=== PATIENT | female | born 1970 | race Hispanic/Latino ===

== ENCOUNTER 2019-08-10 04:54 | Inpatient (IN) | payer OTHER ==
[2019-08-10] MEDS ORDERED: ONDANSETRON 4 MG/2 ML INJ IV ONE (05:37)
[2019-08-10] MEDS ORDERED: PANTOPRAZOLE 40 MG INJ IV ONE (05:37)
[2019-08-10] MEDS ORDERED: MORPHINE 2 MG/1 ML INJ IV ONE ×2 (05:38→08:02)
[2019-08-10] MEDS ORDERED: SODIUM CHLORIDE 0.9% 1000 ML 1,000 ML IV ONE ×2 (05:38→06:31)
[2019-08-10 06:05] LABS: INR 1.12 (0.87-1.13)
[2019-08-10 06:06] LABS: Partial Thromboplastin Time 27.5 Sec. (24.2-36.6)
[2019-08-10 06:11] LABS: Albumin 3.8 g/dL (3.9-5); Calcium 9.6 mg/dL (8.4-10.2)
[2019-08-10 06:16] LABS: Hematocrit 38.4 % (30.3-42.9); Hemoglobin 11.8 gm/dl (10.1-14.3); Mean Corpuscular HGB Conc 31 % (30-34); Platelet Count 526 K/mm3 (140-440); Red Blood Count 3.44 M/mm3 (3.65-5.03)
[2019-08-10 06:18] LABS: Mean Corpuscular Volume 111 fl (79-97); Red Cell Distribution Width 31.2 % (13.2-15.2)
[2019-08-10] MEDS ORDERED: POTASSIUM CHLORIDE ER 20 MEQ TAB PO ONE (06:30)
--- NOTE | 2019-08-10 06:36 | Emergency Department Report ---
ED N/V/D HPI - General Chief complaint: GI Bleed Stated complaint: VOMITING BLOOD Time Seen by Provider: 08/10/19 06:13 Source: patient, EMS Mode of arrival: Wheelchair Limitations: No Limitations - History of Present Illness Initial comments: 49-year-old female, history of erosive esophagitis, duodenal ulcer, anemia, intussusception, presents to ED with vomiting and abdominal pain. Patient reports symptoms have been ongoing x1 month. States she has not had a bowel movement in 1 month. Patient reports initially emesis consisted of stomach contents, states then became a greenish, bilious color, and this morning became brownish in color. Patient reports epigastric pain radiating to the back. Patient reports she has been to this hospital multiple times in the past and has been seen by GI, but has never followed up in the office as an outpatient. MD complaint: nausea, vomiting, abdominal pain -: month(s) (1) Description of Vomiting: food contents, bilious, coffee grounds Associated Abdominal Pain: Yes Location: epigastric Severity: moderate Quality: cramping Consistency: constant Improves with: none Worsens with: eating Associated Symptoms: nausea/vomiting, weakness - Related Data Allergies Allergy/AdvReac Type Severity Reaction Status Date / Time Penicillins Allergy Unknown Verified 08/10/19 05:10 ED Review of Systems ROS: Stated complaint: VOMITING BLOOD Other details as noted in HPI Comment: All other systems reviewed and negative Constitutional: denies: chills, fever Gastrointestinal: abdominal pain, nausea, vomiting, constipation ED Past Medical Hx - Past Medical History Previous Medical History?: Yes Hx Hypertension: Yes Additional medical history: PUD. GI Bleed. Anemia - Surgical History Past Surgical History?: No - Social History Smoking Status: Never Smoker Substance Use Type: None ED Physical Exam - General Limitations: No Limitations General appearance: other (appears frail) - Head Head exam: Present: atraumatic, normocephalic, other (lice present) - Eye Eye exam: Present: normal appearance, EOMI - ENT ENT exam: Present: mucous membranes dry - Neck Neck exam: Present: normal inspection - Respiratory Respiratory exam: Present: normal lung sounds bilaterally. Absent: respiratory distress - Cardiovascular Cardiovascular Exam: Present: normal rhythm, tachycardia - GI/Abdominal GI/Abdominal exam: Present: soft, tenderness (epigastric), other (pt has coffee ground emesis in emesis bag at bedside). Absent: distended - Extremities Exam Extremities exam: Present: normal inspection - Neurological Exam Neurological exam: Present: alert, oriented X3, CN II-XII intact. Absent: motor sensory deficit - Psychiatric Psychiatric exam: Present: normal affect, normal mood - Skin Skin exam: Present: pallor ED Course Vital Signs 08/10/19 08/10/19 08/10/19 05:06 05:28 05:30 Temperature 97.7 F Pulse Rate 115 H 117 H Respiratory 18 19 Rate Blood Pressure 109/68 130/89 123/84 O2 Sat by Pulse 100 76 L 99 Oximetry 08/10/19 08/10/19 08/10/19 05:46 06:00 06:16 Temperature Pulse Rate 104 H 105 H 110 H Respiratory 20 21 19 Rate Blood Pressure 123/84 139/85 139/85 O2 Sat by Pulse 100 100 100 Oximetry 08/10/19 08/10/19 08/10/19 07:00 08:00 09:00 Temperature Pulse Rate 104 H 101 H 102 H Respiratory 18 16 13 Rate Blood Pressure 133/79 114/60 139/75 O2 Sat by Pulse 92 100 100 Oximetry 08/10/19 10:00 Temperature Pulse Rate 101 H Respiratory 16 Rate Blood Pressure 135/81 O2 Sat by Pulse 100 Oximetry ED Medical Decision Making - Lab Data Result diagrams: 08/10/19 05:17 08/10/19 08:20 - Radiology Data Radiology results: report reviewed, image reviewed - Medical Decision Making - intractable nausea and vomiting x 1 month; CT Abd/Pelvis negative for acute abnormality - acidotic with increased AG; glucose normal; denies aspirin use; states instructed to take iron, but has not been taking it; bicarb drip initiated - hypokalemia w/ K of 2.2; PO replacement given - coffee ground emesis; Hb normal; protonix bolus given, drip initiated - vitals stable, afebrile, initially tachycardic, now improved following 2L bolus NS - pt will be admitted to hospitalist, Dr Witt, for admission - Differential Diagnosis GI bleed, anemia, bowel obstruction Critical Care Time: Yes Critical care time in (mins) excluding proc time.: 35 Critical care attestation.: If time is entered above; I have spent that time in minutes in the direct care of this critically ill patient, excluding procedure time. Critical Care Time: 35 min ED Disposition Clinical Impression: Nausea & vomiting, GI bleed, Hypokalemia, Metabolic acidosis, Head lice Disposition: DC-09 OP ADMIT IP TO THIS HOSP Is pt being admited?: Yes Condition: Stable Time of Disposition: 07:56
[2019-08-10 06:48] LABS: Albumin 3.5 g/dL (3.9-5); Bilirubin,Direct 0.3 mg/dL (0-0.2)
[2019-08-10 06:50] LABS: Anisocytosis 1+; Basophils % (Manual) 0 % (0.0-1.8); Total Cells Counted 100
[2019-08-10 06:51] LABS: Macrocytosis 1+; Platelet Estimate Consistent w Auto
--- NOTE | 2019-08-10 07:45 | Cat Scan Report ---
CT ABDOMEN AND PELVIS WITH CONTRAST HISTORY: MAIN: vomiting x 12 hours Omni 300 COMPARISON: None. TECHNIQUE: Axial CT images were obtained through the abdomen and pelvis after 100 cc of Omnipaque 300 intravenously. Sagittal and coronal reformatted images. All CT scans at this location are performed using CT dose reduction for ALARA by means of automated exposure control. FINDINGS: CT ABDOMEN: Lung Bases: Clear. Liver: Mild hepatic steatosis. Biliary: The gallbladder appears dilated measuring up to 10.8 cm in length and 5.3 cm in diameter. No obvious calcified gallstones or sludge. The common bile duct and intrahepatic bile ducts are unremar kable. Spleen: No significant abnormality. Unenlarged. Pancreas: No significant abnormality. Adrenals: No significant abnormality. Kidneys: No significant abnormality. Lymphatics: No lymphadenopathy. Vasculature: No significant abnormality. Bowel/Peritoneum: No significant abnormality. No free air. No free fluid. Normal appendix. CT PELVIS: : The bladder is moderately distended but no wall thickening or filling defect is detected. The fabián joceline and adnexa are unremarkable. Osseous Structures: Mild thoracolumbar scoliosis and degenerative changes in the lumbar spine. Additional Findings: None IMPRESSION: Dilated gallbladder but no obvious calcified gallstones on CT. Correlate for biliary symptoms. Mild hepatic steatosis. Mild scoliosis with degenerative changes in the lumbar spine. Signer Name: Ian Chen Jr, MD Signed: 08/10/2019 7:41 AM Workstation Name: [id number]
[2019-08-10] MEDS ORDERED: NALOXONE 0.4 MG/1 ML INJ IV PRN (08:14)
[2019-08-10] MEDS ORDERED: ONDANSETRON 4 MG/2 ML INJ IV PRN ×2 (08:14→08:20)
[2019-08-10] MEDS ORDERED: METOCLOPRAMIDE 10 MG/2 ML INJ IV PRN (08:14)
--- NOTE | 2019-08-10 08:19 | History and Physical Report ---
History of Present Illness Date of examination: 08/10/19 Date of admission: 08/10/19 Chief complaint: Persistent nausea with vomiting History of present illness: Patient is a 49-year-old female, history of erosive esophagitis, duodenal ulcer, anemia, intussusception, presents to ED with vomiting and abdominal pain. Initially she described it as food contents and today is bilious with noted coffee-ground emesis. Patient reports symptoms have been ongoing x1 month. States she has not had a bowel movement in 1 month despite being on stool softeners. Patient reports initially emesis consisted of stomach contents, states then became a greenish, bilious color, and this morning became brownish in color. Patient reports epigastric pain radiating to the back. Patient reports she has been to this hospital multiple times in the past and has been seen by GI, but has never followed up in the office as an outpatient. She denies tobacco use, or alcohol and illicit drug use. Past History Past Medical History: GERD, hypertension, other (PUD) Past Surgical History: Other (COLONSCOPY) Social history: no significant social history, full code Family history: no significant family history Medications and Allergies Allergies Allergy/AdvReac Type Severity Reaction Status Date / Time Penicillins Allergy Unknown Verified 08/10/19 05:10 Active Meds: Active Medications Sodium Bicarbonate 50 meq/ (Sodium Chloride) 1,050 mls @ 125 mls/hr IV DI RECT ONE Stop: 08/10/19 17:23 Pantoprazole Sodium 80 mg/ (Sodium Chloride) 100 mls @ 10 mls/hr IV DIRECT ARNOLDO Review of Systems All systems: negative Constitutional: anorexia, weakness, malaise, lethargy, no weight loss, no weight gain, no fever Cardiovascular: palpitations, no chest pain, no orthopnea, no rapid/irregular heart beat, no edema, no syncope Gastrointestinal: abdominal pain, nausea, vomiting, constipation, no diarrhea Neurological: no head injury, no paralysis, no parathesias, no numbness, no seizures, no tic, no change in speech, no confusion Psychiatric: no change in sleep habits, no insomnia, no change in libido, no disorientation Endocrine: no polyuria, no excessive sweating, no weight change, no proptosis, no palpatations, no recent glucocorticoid use Hematologic/Lymphatic: no easy bleeding Exam - Physical Exam Narrative exam: VITAL SIGNS: Reviewed. GENERAL: The patient appears normally developed, frail appearing. Actively vomiting noted earlier. Noted lice. Vital signs as documented. HEAD: No signs of head trauma. EYES: Pupils are equal. Extraocular motions intact. EARS: Hearing grossly intact. MOUTH: Oropharynx is normal. NECK: No adenopathy, no JVD. CHEST: Chest with clear breath sounds bilaterally. No wheezes, rales, or rhonchi. CARDIAC: tachycardia. S1 and S2, without murmurs, gallops, or rubs. VASCULAR: No Edema. Peripheral pulses normal and equal in all extremities. ABDOMEN: Soft, non tender [epigastric tenderness noted in the ED] and non distended. No rebound or guarding, and no masses palpated. Bowel Sounds normal. MUSCULOSKELETAL: Good range of motion of all major joints. Extremities without clubbing, cyanosis or edema. NEUROLOGIC EXAM: Alert and oriented x 3 No focal sensory or strength deficits. Speech normal. Follows commands. PSYCHIATRIC: Mood normal. SKIN: detial exam as documented in skin assessment - Constitutional Vitals: Temp Pulse Resp BP Pulse Ox 97.7 F 110 H 19 139/85 100 08/10/19 05:06 08/10/19 06:16 08/10/19 06:16 08/10/19 06:16 08/10/19 06:16 Results - Labs CBC & Chem 7: 08/10/19 13:08 08/10/19 13:08 Labs: Laboratory Last Values WBC 10.1 K/mm3 (4.5-11.0) 08/10/19 05:17 RBC 3.44 M/mm3 (3.65-5.03) L 08/10/19 05:17 Hgb 11.8 gm/dl (10.1-14.3) 08/10/19 05:17 Hct 38.4 % (30.3-42.9) 08/10/19 05:17 MCV 111 fl (79-97) H 08/10/19 05:17 MCH 34 pg (28-32) H 08/10/19 05:17 MCHC 31 % (30-34) 08/10/19 05:17 RDW 31.2 % (13.2-15.2) H 08/10/19 05:17 Plt Count 526 K/mm3 (140-440) H 08/10/19 05:17 Lymph % (Auto) Manager Inpatient 08/10/19 05:17 [place] % (Auto) Manager Inpatient 08/10/19 05:17 Eos % (Auto) Manager Inpatient 08/10/19 05:17 Baso % (Auto) Manager Inpatient 08/10/19 05:17 Lymph # Manager Inpatient 08/10/19 05:17 [place] # Manager Inpatient 08/10/19 05:17 Eos # Manager Inpatient 08/10/19 05:17 Baso # Manager Inpatient 08/10/19 05:17 Add Manual Diff Complete 08/10/19 05:17 Total Counted 100 08/10/19 05:17 Seg Neutrophils % Manager Inpatient 08/10/19 05:17 Seg Neuts % (Manual) 80.0 % (40.0-70.0) H 08/10/19 05:17 Band Neutrophils % 0 % 08/10/19 05:17 Lymphocytes % (Manual) 12.0 % (13.4-35.0) L 08/10/19 05:17 Reactive Lymphs % (Man) 0 % 08/10/19 05:17 Monocytes % (Manual) 5.0 % (0.0-7.3) 08/10/19 05:17 Eosinophils % (Manual) 3.0 % (0.0-4.3) 08/10/19 05:17 Basophils % (Manual) 0 % (0.0-1.8) 08/10/19 05:17 Metamyelocytes % 0 % 08/10/19 05:17 Myelocytes % 0 % 08/10/19 05:17 Promyelocytes % 0 % 08/10/19 05:17 Blast Cells % 0 % 08/10/19 05:17 Nucleated RBC % Not Reportable 08/10/19 05:17 Seg Neutrophils # Manager Inpatient 08/10/19 05:17 Seg Neutrophils # Man 8.1 K/mm3 (1.8-7.7) H 08/10/19 05:17 Band Neutrophils # 0.0 K/mm3 08/10/19 05:17 Lymphocytes # (Manual) 1.2 K/mm3 (1.2-5.4) 08/10/19 05:17 Abs React Lymphs (Man) 0.0 K/mm3 08/10/19 05:17 Monocytes # (Manual) 0.5 K/mm3 (0.0-0.8) 08/10/19 05:17 Eosinophils # (Manual) 0.3 K/mm3 (0.0-0.4) 08/10/19 05:17 Basophils # (Manual) 0.0 K/mm3 (0.0-0.1) 08/10/19 05:17 Metamyelocytes # 0.0 K/mm3 08/10/19 05:17 Myelocytes # 0.0 K/mm3 08/10/19 05:17 Promyelocytes # 0.0 K/mm3 08/10/19 05:17 Blast Cells # 0.0 K/mm3 08/10/19 05:17 WBC Morphology Not Reportable 08/10/19 05:17 Hypersegmented Neuts Not Reportable 08/10/19 05:17 Hyposegmented Neuts Not Reportable 08/10/19 05:17 Hypogranular Neuts Not Reportable 08/10/19 05:17 Smudge Cells Not Reportable 08/10/19 05:17 Toxic Granulation Not Reportable 08/10/19 05:17 Toxic Vacuolation Not Reportable 08/10/19 05:17 Dohle Bodies Not Reportable 08/10/19 05:17 Pelger-Huet Anomaly Not Reportable 08/10/19 05:17 Jhonny Rods Not Reportable 08/10/19 05:17 Platelet Estimate Consistent w auto 08/10/19 05:17 Clumped Platelets Not Reportable 08/10/19 05:17 Plt Clumps, EDTA Not Reportable 08/10/19 05:17 Large Platelets Not Reportable 08/10/19 05:17 Giant Platelets Not Reportable 08/10/19 05:17 Platelet Satelliting Not Reportable 08/10/19 05:17 Plt Morphology Comment Not Reportable 08/10/19 05:17 RBC Morphology Not Reportable 08/10/19 05:17 Dimorphic RBCs Not Reportable 08/10/19 05:17 Polychromasia Not Reportable 08/10/19 05:17 Hypochromasia Not Reportable 08/10/19 05:17 Poikilocytosis Not Reportable 08/10/19 05:17 Anisocytosis 1+ 08/10/19 05:17 Microcytosis Not Reportable 08/10/19 05:17 Macrocytosis 1+ 08/10/19 05:17 Spherocytes Not Reportable 08/10/19 05:17 Pappenheimer Bodies Not Reportable 08/10/19 05:17 Sickle Cells Not Reportable 08/10/19 05:17 Target Cells Not Reportable 08/10/19 05:17 Tear Drop Cells Not Reportable 08/10/19 05:17 Ovalocytes Not Reportable 08/10/19 05:17 Helmet Cells Not Reportable 08/10/19 05:17 Roche-Macy Bodies Not Reportable 08/10/19 05:17 Carson Rings Not Reportable 08/10/19 05:17 Denice Cells Not Reportable 08/10/19 05:17 Bite Cells Not Reportable 08/10/19 05:17 Crenated Cell Not Reportable 08/10/19 05:17 Elliptocytes Not Reportable 08/10/19 05:17 Acanthocytes (Spur) Not Reportable 08/10/19 05:17 Rouleaux Not Reportable 08/10/19 05:17 Hemoglobin C Crystals Not Reportable 08/10/19 05:17 Schistocytes Not Reportable 08/10/19 05:17 Malaria parasites Not Reportable 08/10/19 05:17 Jace Bodies Not Reportable 08/10/19 05:17 Hem Pathologist Commnt No 08/10/19 05:17 PT 14.2 Sec. (12.2-14.9) 08/10/19 05:34 INR 1.12 (0.87-1.13) 08/10/19 05:34 APTT 27.5 Sec. (24.2-36.6) 08/10/19 05:34 Sodium 133 mmol/L (137-145) L 08/10/19 05:34 Potassium 2.2 mmol/L (3.6-5.0) L* 08/10/19 05:34 Chloride 86.9 mmol/L (98-107) L 08/10/19 05:34 Carbon Dioxide 8 mmol/L (22-30) L* 08/10/19 05:34 Anion Gap 40 mmol/L 08/10/19 05:34 BUN 7 mg/dL (7-17) 08/10/19 05:34 Creatinine 1.1 mg/dL (0.7-1.2) 08/10/19 05:34 Estimated GFR 52 ml/min 08/10/19 05:34 BUN/Creatinine Ratio 6 % 05/11/20 05:34 Glucose 90 mg/dL (65-100) 08/10/19 05:34 Calcium 9.6 mg/dL (8.4-10.2) 08/10/19 05:34 Magnesium 2.60 mg/dL (1.7-2.3) H 08/10/19 05:34 Total Bilirubin 0.60 mg/dL (0.1-1.2) 08/10/19 05:34 Total Bilirubin 0.60 mg/dL (0.1-1.2) 08/10/19 05:34 Direct Bilirubin 0.3 mg/dL (0-0.2) H 08/10/19 05:34 Indirect Bilirubin 0.3 mg/dL 08/10/19 05:34 AST 36 units/L (5-40) 08/10/19 05:34 AST 45 units/L (5-40) H 08/10/19 05:34 ALT 24 units/L (7-56) 08/10/19 05:34 ALT 26 units/L (7-56) 08/10/19 05:34 Alkaline Phosphatase 152 units/L (35-129) H 08/10/19 05:34 Alkaline Phosphatase 163 units/L (35-129) H 08/10/19 05:34 Total Protein 7.7 g/dL (6.3-8.2) 08/10/19 05:34 Total Protein 7.7 g/dL (6.3-8.2) 08/10/19 05:34 Albumin 3.5 g/dL (3.9-5) L 08/10/19 05:34 Albumin 3.8 g/dL (3.9-5) L 08/10/19 05:34 Albumin/Globulin Ratio 0.8 % 08/10/19 05:34 Albumin/Globulin Ratio 1.0 % 08/10/19 05:34 Lipase 146 units/L (13-60) H 08/10/19 05:34 Blood Type A POSITIVE 08/10/19 05:11 Antibody Screen Negative 08/10/19 05:11 [place]/IV: IV Catheter Type [Left INT / Saline Lock Antecubital] Assessment and Plan Assessment and plan: Patient is a 49-year-old female, history of erosive esophagitis, duodenal ulcer, anemia, intussusception, presents to ED with vomiting and abdominal pain. Initially she described it as food contents and today is bilious with noted coffee-ground emesis. Patient reports symptoms have been ongoing x1 month. States she has not had a bowel movement in 1 month despite being on stool softeners. Patient reports initially emesis consisted of stomach contents, states then became a greenish, bilious color, and this morning became brownish in color. Patient reports epigastric pain radiating to the back. Patient reports she has been to this hospital multiple times in the past and has been seen by GI, but has never followed up in the office as an outpatient. She denies tobacco use, or alcohol and illicit drug use. Severe metabolic acidosis Severe hypokalemia Persistent intractable nausea and vomiting Coffee-ground emesis evaluate for possible GI bleed Severe protein calorie malnutrition with cachexia BMI of 18 Hypermagnesemia Mildly elevated alk phos Tachycardia Plan Admit to inpatient MedSurg for severe metabolic acidosis, persistent intractable nausea vomiting Zofran every 4 hours as needed. And Reglan if no improvement with Zofran. Patient already received 2 L boluses of fluid on admission will reevaluate fluid status. We will put a nephrology consult Start on Bicarb drip GI evaluation Monitor H&H Repeat labs in a.m. including CMP DVT and GI prophylaxis Advance Directives: Yes Plan of care discussed with patient/family: Yes
[2019-08-10] MEDS ORDERED: SODIUM BICARB 8.4% 50 MEQ/50 ML SYRINGE IV ONE (08:21)
[2019-08-10 08:49] LABS: BUN/Creatinine Ratio 8; Blood Urea Nitrogen 7 mg/dL (7-17); Calcium 8.4 mg/dL (8.4-10.2); Hemolysis Index 7
[2019-08-10] MEDS ORDERED: SODIUM BICARBONATE 50 MEQ in SODIUM CHLORIDE 0.9% 1000 ML 1,000 ML IV ONE (09:00)
[2019-08-10] MEDS ORDERED: POTASSIUM CHLORIDE 10 MEQ 20 MEQ/200 ML BAG IV ONE ×2 (09:59→15:40)
[2019-08-10] MEDS: POTASSIUM CHLORIDE 10 MEQ 10 MEQ/100 ML BAG IV SCH ×4 (10:13→18:29)
[2019-08-10] MEDS ORDERED: PERMETHRIN 5% CREAM 60 GM TP ONE (10:30)
[2019-08-10 13:33] LABS: Hematocrit 29.2 % (30.3-42.9); Hemoglobin 9.3 gm/dl (10.1-14.3)
[2019-08-10 13:53] LABS: BUN/Creatinine Ratio 6; Blood Urea Nitrogen 5 mg/dL (7-17); Calcium 8.1 mg/dL (8.4-10.2); Hemolysis Index 10
[2019-08-10] MEDS ORDERED: MAGNESIUM HYDROXIDE (MOM) ORAL LIQD UDC PO PRN (15:20)
[2019-08-10] MEDS ORDERED: SODIUM CHLORIDE 0.9% 1000 ML 1,000 ML ONE (15:39)
[2019-08-10] MEDS: SODIUM BICARBONATE 150 MEQ in DEXTROSE 5% IN WATER 1,000 ML IV SCH (18:00)
[2019-08-10] MEDS: PANTOPRAZOLE 80 MG in SODIUM CHLORIDE 0.9% 100 ML IV SCH (19:26)
[2019-08-10] MEDS ORDERED: ACETAMINOPHEN 325 MG TAB ONE (19:49)
[2019-08-10] MEDS: ACETAMINOPHEN 325 MG TAB PO PRN (19:50)
[2019-08-11] MEDS: PANTOPRAZOLE 80 MG in SODIUM CHLORIDE 0.9% 100 ML IV SCH (01:24)
[2019-08-11] MEDS: SODIUM BICARBONATE 150 MEQ in DEXTROSE 5% IN WATER 1,000 ML IV SCH (01:25)
[2019-08-11 05:44] LABS: Hematocrit 20.4 % (30.3-42.9); Hemoglobin 7.1 gm/dl (10.1-14.3); Mean Corpuscular HGB Conc 35 % (30-34); Mean Corpuscular Volume 100 fl (79-97); Platelet Count 227 K/mm3 (140-440); Red Blood Count 2.03 M/mm3 (3.65-5.03)
[2019-08-11 06:08] LABS: Alanine Aminotransferase 14 units/L (7-56); Albumin 2.4 g/dL (3.9-5); BUN/Creatinine Ratio 6; Blood Urea Nitrogen 3 mg/dL (7-17); Calcium 7.5 mg/dL (8.4-10.2); Hemolysis Index 1
[2019-08-11 06:36] LABS: Anisocytosis 3+; Basophils % (Manual) 0 % (0.0-1.8); Target Cells Few; Total Cells Counted 100
[2019-08-11 06:37] LABS: Macrocytosis Few; Ovalocytes Few; Schistocytes Few; Tear Drop Cells Few
[2019-08-11 06:38] LABS: Platelet Estimate Consistent w Auto
[2019-08-11] MEDS ORDERED: SODIUM CHLORIDE 0.9% 500 ML 500 ML IV SCH (08:00)
--- NOTE | 2019-08-11 09:04 | Consultation ---
History of Present Illness - Reason for Consult Consult date: 08/11/19 hypokalemia, metabolic acidosis - History of Present Illness Mrs. Metzger is a 49-year-old female who presented to the ED with abdominal pain, constipation (patient stated that she had not had a bowel movement in appx 1 month) and vomiting. She denies hematemesis, states emesis is nonbloody, bilious. Labs at admission notable for Bicarb 8 and K 2.2. Past History Past Medical History: GERD, hypertension, other (PUD) Past Surgical History: Other (COLONSCOPY) Social history: no significant social history, full code Family history: no significant family history Medications and Allergies Allergies Allergy/AdvReac Type Severity Reaction Status Date / Time Penicillins Allergy Unknown Verified 08/10/19 05:10 Home Medications Medication Instructions Recorded Confirmed Last Taken Type No Known Home Medications [No 08/10/19 08/10/19 Unknown History Reported Home Medications] Active Meds: Active Medications Acetaminophen (Tylenol) 650 mg PO Q4H PRN PRN Reason: Pain MILD(1-3)/Fever >100.5/CONH Last Admin: 08/10/19 19:50 Dose: 650 mg Documented by: Bisacodyl (Dulcolax) 10 mg DC QDAY PRN PRN Reason: Constipation unrelieved by MOM Pantoprazole Sodium 80 mg/ (Sodium Chloride) 100 mls @ 10 mls/hr IV DIRECT ARNOLDO Last Admin: 08/11/19 01:24 Dose: 8 mg/hr, 10 mls/hr Documented by: Potassium Chloride (Kcl 10meq/100ml) 10 meq in 100 mls @ 100 mls/hr IV Q1H ARNOLDO Stop: 08/11/19 12:59 Sodium Chloride (Nacl 0.9% 500 Ml) 500 mls @ 0 mls/hr IV ONCE ARNOLDO Stop: 08/11/19 18:00 Magnesium Hydroxide (Milk Of Magnesia) 30 ml PO Q4H PRN PRN Reason: Constipation Metoclopramide HCl (Reglan) 10 mg IV Q6H PRN PRN Reason: Nausea And Vomiting Naloxone HCl (Naloxone) 0.1 mg IV Q2MIN PRN PRN Reason: Res Rate </= 8 or 02 SAT < 92% Ondansetron HCl (Zofran) 4 mg IV Q4H PRN PRN Reason: Nausea And Vomiting Sodium Chloride (Sodium Chloride Flush Syringe 10 Ml) 10 ml IV BID ARNOLDO Last Admin: 08/10/19 23:59 Dose: Not Given Documented by: Sodium Chloride (Sodium Chloride Flush Syringe 10 Ml) 10 ml IV PRN PRN PRN Reason: LINE FLUSH Last Admin: 08/10/19 19:25 Dose: 10 ml Documented by: Review of Systems All systems: negative Exam - Vital Signs Vital signs: Vital Signs Temp Pulse Resp BP Pulse Ox 97.7 F 115 H 18 109/68 100 08/10/19 05:06 08/10/19 05:06 08/10/19 05:06 08/10/19 05:06 08/10/19 05:06 - Physical Exam Narrative exam: Exam deferred as adequate PPE is not available at time of visit. Results - Lab Results 08/11/19 11:46 08/11/19 16:49 Most recent lab results Calcium 7.5 mg/dL (8.4-10.2) L 08/11/19 05:17 Magnesium 2.60 mg/dL (1.7-2.3) H 08/10/19 05:34 Assessment and Plan Impression: * Hypokalemia * Metaolic acidosis - resolved * Nausea/vomiting * Anemia Plan: * Replete K prn - patient is s/p 60meq overnight, 40meq IV has been ordered today * Continue IVF * Transfuse pRBC prn * Will obtain work up for hypokalemia * AM labs ordered
[2019-08-11] MEDS: POTASSIUM CHLORIDE 10 MEQ 10 MEQ/100 ML BAG IV SCH ×4 (09:05→12:44)
--- NOTE | 2019-08-11 09:09 | Progress Note ---
Assessment and Plan Assessment and plan: Patient is a 49-year-old female, history of erosive esophagitis, duodenal ulcer, anemia, intussusception, presents to ED with vomiting and abdominal pain. Initially she described it as food contents and today is bilious with noted coffee-ground emesis. Patient reports symptoms have been ongoing x1 month. States she has not had a bowel movement in 1 month despite being on stool softeners. Patient reports initially emesis consisted of stomach contents, states then became a greenish, bilious color, and this morning became brownish in color. Patient reports epigastric pain radiating to the back. Patient reports she has been to this hospital multiple times in the past and has been seen by GI, but has never followed up in the office as an outpatient. She denies tobacco use, or alcohol and illicit drug use. 08/10: Persistent hypokalemia. Acidosis is corrected. Will start bicarb drip. Will give additional potassium. Question underlining RTA. Discussed with nursing staff nephrology currently evaluating. GI called by nursing staff. We will plan to give a unit of packed red blood cell due to the dramatic drop in hemoglobin and hematocrit. Severe metabolic acidosis Severe hypokalemia Persistent intractable nausea and vomiting Severe Anemia Coffee-ground emesis evaluate for possible GI bleed Severe protein calorie malnutrition with cachexia BMI of 18 Hypermagnesemia Mildly elevated alk phos Tachycardia Plan Continue supportive care as outlined above and below Zofran every 4 hours as needed. And Reglan if no improvement with Zofran. Patient already received 2 L boluses of fluid on admission will reevaluate fluid status. We will put a nephrology consult Permethrin was ordered and patient was treated with same. Discontinue bicarb drip GI evaluation Monitor H&H Repeat labs in a.m. including CMP DVT and GI prophylaxis History Interval history: Patient seen and examined this morning resting comfortably no new complaints. Discussed with nursing staff about low potassium. Hospitalist Physical - Physical exam Narrative exam: VITAL SIGNS: Reviewed. GENERAL: The patient appears normally developed, frail appearing. Vital signs as documented. HEAD: No signs of head trauma. EYES: Pupils are equal. Extraocular motions intact. EARS: Hearing grossly intact. MOUTH: Oropharynx is normal. NECK: No adenopathy, no JVD. CHEST: Chest with clear breath sounds bilaterally. No wheezes, rales, or rhonchi. CARDIAC: tachycardia. S1 and S2, without murmurs, gallops, or rubs. VASCULAR: No Edema. Peripheral pulses normal and equal in all extremities. ABDOMEN: Soft, non tender [epigastric tenderness noted in the ED] and non distended. No rebound or guarding, and no masses palpated. Bowel Sounds normal. MUSCULOSKELETAL: Good range of motion of all major joints. Extremities without clubbing, cyanosis or edema. NEUROLOGIC EXAM: Alert and oriented x 3 No focal sensory or strength deficits. Speech normal. Follows commands. PSYCHIATRIC: Mood normal. SKIN: Multiple punctate skin lesion with dry skin. Detial exam as documented in skin assessment - Constitutional Vitals: Temp Pulse Resp BP Pulse Ox 98.1 F 89 18 94/47 97 08/10/19 23:53 08/11/19 06:11 08/10/19 23:53 08/11/19 06:11 08/11/19 08:16 Results - Labs CBC & Chem 7: 08/11/19 11:46 08/11/19 05:17 Labs: Laboratory Last Values WBC 6.0 K/mm3 (4.5-11.0) 08/11/19 05:17 RBC 2.03 M/mm3 (3.65-5.03) L 08/11/19 05:17 Hgb 7.1 gm/dl (10.1-14.3) L 08/11/19 05:17 Hct 20.4 % (30.3-42.9) L D 08/11/19 05:17 MCV 100 fl (79-97) H 08/11/19 05:17 MCH 35 pg (28-32) H 08/11/19 05:17 MCHC 35 % (30-34) H 08/11/19 05:17 RDW 31.0 % (13.2-15.2) H 08/11/19 05:17 Plt Count 227 K/mm3 (140-440) 08/11/19 05:17 Lymph % (Auto) Adjunct Teacher 08/10/19 05:17 Bracken % (Auto) Adjunct Teacher 08/10/19 05:17 Eos % (Auto) Adjunct Teacher 08/10/19 05:17 Baso % (Auto) Adjunct Teacher 08/10/19 05:17 Lymph # Adjunct Teacher 08/10/19 05:17 Bracken # Adjunct Teacher 08/10/19 05:17 Eos # Adjunct Teacher 08/10/19 05:17 Baso # Adjunct Teacher 08/10/19 05:17 Add Manual Diff Complete 08/11/19 05:17 Total Counted 100 08/11/19 05:17 Seg Neutrophils % Adjunct Teacher 08/10/19 05:17 Seg Neuts % (Manual) 65.0 % (40.0-70.0) 08/11/19 05:17 Band Neutrophils % 0 % 08/11/19 05:17 Lymphocytes % (Manual) 21.0 % (13.4-35.0) 08/11/19 05:17 Reactive Lymphs % (Man) 0 % 08/11/19 05:17 Monocytes % (Manual) 9.0 % (0.0-7.3) H 08/11/19 05:17 Eosinophils % (Manual) 5.0 % (0.0-4.3) H 08/11/19 05:17 Basophils % (Manual) 0 % (0.0-1.8) 08/11/19 05:17 Metamyelocytes % 0 % 08/11/19 05:17 Myelocytes % 0 % 08/11/19 05:17 Promyelocytes % 0 % 08/11/19 05:17 Blast Cells % 0 % 08/11/19 05:17 Nucleated RBC % Not Reportable 08/11/19 05:17 Seg Neutrophils # Adjunct Teacher 08/10/19 05:17 Seg Neutrophils # Man 3.9 K/mm3 (1.8-7.7) 08/11/19 05:17 Band Neutrophils # 0.0 K/mm3 08/11/19 05:17 Lymphocytes # (Manual) 1.3 K/mm3 (1.2-5.4) 08/11/19 05:17 Abs React Lymphs (Man) 0.0 K/mm3 08/11/19 05:17 Monocytes # (Manual) 0.5 K/mm3 (0.0-0.8) 08/11/19 05:17 Eosinophils # (Manual) 0.3 K/mm3 (0.0-0.4) 08/11/19 05:17 Basophils # (Manual) 0.0 K/mm3 (0.0-0.1) 08/11/19 05:17 Metamyelocytes # 0.0 K/mm3 08/11/19 05:17 Myelocytes # 0.0 K/mm3 08/11/19 05:17 Promyelocytes # 0.0 K/mm3 08/11/19 05:17 Blast Cells # 0.0 K/mm3 08/11/19 05:17 WBC Morphology Not Reportable 08/11/19 05:17 Hypersegmented Neuts Not Reportable 08/11/19 05:17 Hyposegmented Neuts Not Reportable 08/11/19 05:17 Hypogranular Neuts Not Reportable 08/11/19 05:17 Smudge Cells Not Reportable 08/11/19 05:17 Toxic Granulation Not Reportable 08/11/19 05:17 Toxic Vacuolation Not Reportable 08/11/19 05:17 Dohle Bodies Not Reportable 08/11/19 05:17 Pelger-Huet Anomaly Not Reportable 08/11/19 05:17 Jhonny Rods Not Reportable 08/11/19 05:17 Platelet Estimate Consistent w auto 08/11/19 05:17 Clumped Platelets Not Reportable 08/11/19 05:17 Plt Clumps, EDTA Not Reportable 08/11/19 05:17 Large Platelets Not Reportable 08/11/19 05:17 Giant Platelets Not Reportable 08/11/19 05:17 Platelet Satelliting Not Reportable 08/11/19 05:17 Plt Morphology Comment Not Reportable 08/11/19 05:17 RBC Morphology Not Reportable 08/11/19 05:17 Dimorphic RBCs Not Reportable 08/11/19 05:17 Polychromasia Not Reportable 08/11/19 05:17 Hypochromasia Not Reportable 08/11/19 05:17 Poikilocytosis Not Reportable 08/11/19 05:17 Anisocytosis 3+ 08/11/19 05:17 Microcytosis Few 08/11/19 05:17 Macrocytosis Few 08/11/19 05:17 Spherocytes Not Reportable 08/11/19 05:17 Pappenheimer Bodies Not Reportable 08/11/19 05:17 Sickle Cells Not Reportable 08/11/19 05:17 Target Cells Few 08/11/19 05:17 Tear Drop Cells Few 08/11/19 05:17 Ovalocytes Few 08/11/19 05:17 Helmet Cells Not Reportable 08/11/19 05:17 Roche-[place] Bodies Not Reportable 08/11/19 05:17 [place] Rings Not Reportable 08/11/19 05:17 Jay Cells Not Reportable 08/11/19 05:17 Bite Cells Not Reportable 08/11/19 05:17 Crenated Cell Not Reportable 08/11/19 05:17 Elliptocytes Not Reportable 08/11/19 05:17 Acanthocytes (Spur) Not Reportable 08/11/19 05:17 Rouleaux Not Reportable 08/11/19 05:17 Hemoglobin C Crystals Not Reportable 08/11/19 05:17 Schistocytes Few 08/11/19 05:17 Malaria parasites Not Reportable 08/11/19 05:17 Jace Bodies Not Reportable 08/11/19 05:17 Hem Pathologist Commnt No 08/11/19 05:17 PT 14.2 Sec. (12.2-14.9) 08/10/19 05:34 INR 1.12 (0.87-1.13) 08/10/19 05:34 APTT 27.5 Sec. (24.2-36.6) 08/10/19 05:34 Sodium 141 mmol/L (137-145) 08/11/19 05:17 Potassium 2.5 mmol/L (3.6-5.0) L* D 08/11/19 05:17 Chloride 100.5 mmol/L (98-107) 08/11/19 05:17 Carbon Dioxide 25 mmol/L (22-30) D 08/11/19 05:17 Anion Gap 18 mmol/L 08/11/19 05:17 BUN 3 mg/dL (7-17) L 08/11/19 05:17 Creatinine 0.5 mg/dL (0.7-1.2) L 08/11/19 05:17 Estimated GFR > 60 ml/min 08/11/19 05:17 BUN/Creatinine Ratio 6 % 08/11/19 05:17 Glucose 101 mg/dL (65-100) H 08/11/19 05:17 POC Glucose 145 (70-105) H 08/10/19 19:54 Calcium 7.5 mg/dL (8.4-10.2) L 08/11/19 05:17 Magnesium 2.60 mg/dL (1.7-2.3) H 08/10/19 05:34 Total Bilirubin 0.50 mg/dL (0.1-1.2) 08/11/19 05:17 Direct Bilirubin 0.3 mg/dL (0-0.2) H 08/10/19 05:34 Indirect Bilirubin 0.3 mg/dL 08/10/19 05:34 AST 23 units/L (5-40) 08/11/19 05:17 ALT 14 units/L (7-56) 08/11/19 05:17 Alkaline Phosphatase 91 units/L (35-129) 08/11/19 05:17 Total Protein 5.2 g/dL (6.3-8.2) L D 08/11/19 05:17 Albumin 2.4 g/dL (3.9-5) L 08/11/19 05:17 Albumin/Globulin Ratio 0.9 % 08/11/19 05:17 Lipase 146 units/L (13-60) H 08/10/19 05:34 Blood Type A POSITIVE 08/10/19 05:11 Antibody Screen Negative 08/10/19 05:11 Crossmatch See Detail 08/10/19 05:11 Skelton/IV: Voiding Method Toilet IV Catheter Type [Right INT / Saline Lock Antecubital] IV Catheter Type [Left INT / Saline Lock Antecubital] Active Medications - Current Medications Current Medications: Generic Name Dose Route Start Last Admin Trade Name Freq PRN Reason Stop Dose Admin Acetaminophen 650 mg 08/10/19 08:14 08/10/19 19:50 Tylenol PO 650 mg Q4H PRN Administration Pain MILD(1-3)/Fever >100.5/COHN Bisacodyl 10 mg 08/10/19 08:14 Dulcolax AL QDAY PRN Constipation unrelieved by MOM Pantoprazole Sodium 80 mg/ 100 mls @ 10 mls/hr 08/10/19 08:00 08/11/19 01:24 Sodium Chloride IV 8 mg/hr DIRECT ARNOLDO 10 mls/hr Administration 8 MG/HR Potassium Chloride 10 meq in 100 mls @ 100 mls/hr 08/11/19 09:00 08/11/19 09:05 Kcl 10meq/100ml IV 08/11/19 12:59 100 mls/hr Q1H ARNOLDO Administration Sodium Chloride 500 mls @ 0 mls/hr 08/11/19 08:00 Nacl 0.9% 500 Ml IV 08/11/19 18:00 ONCE ARNOLDO As Directed Magnesium Hydroxide 30 ml 08/10/19 15:20 Milk Of Magnesia PO Q4H PRN Constipation Metoclopramide HCl 10 mg 08/10/19 08:14 08/11/19 09:05 Reglan IV 10 mg Q6H PRN Administration Nausea And Vomiting Naloxone HCl 0.1 mg 08/10/19 08:14 Naloxone IV Q2MIN PRN Res Rate </= 8 or 02 SAT < 92% Ondansetron HCl 4 mg 08/10/19 08:20 Zofran IV Q4H PRN Nausea And Vomiting Sodium Chloride 10 ml 08/10/19 10:00 08/10/19 23:59 Sodium Chloride Flush Syringe 10 Ml IV Not Given BID ARNOLDO Sodium Chloride 10 ml 08/10/19 08:14 08/10/19 19:25 Sodium Chloride Flush Syringe 10 Ml IV 10 ml PRN PRN Administration LINE FLUSH
[2019-08-11 12:07] LABS: Hematocrit 20.9 % (30.3-42.9); Hemoglobin 7.1 gm/dl (10.1-14.3)
--- NOTE | 2019-08-11 12:08 | Consultation ---
REFERRING PHYSICIAN: Anam Witt MD INDICATIONS: 1. Nausea, vomiting. 2. Coffee-ground emesis. HISTORY OF PRESENT ILLNESS: The patient is a 49-year-old female with history of erosive esophagitis, peptic ulcer disease, now presents for GI symptoms. The patient's history is pertinent that in May, she presented and had an EGD showing a clean based duodenal ulcer. The patient reports 1 day of nausea, vomiting with reported coffee-ground emesis with the last bout being approximately 2 days ago. She reports no black tarry stools. She denies any bright red hematemesis. The patient subsequently was admitted. She has currently been diagnosed with lice and being treated and just went in contact precautions. She denies any recent NSAIDs or aspirin. Denies any other specific GI problems or complaints. PAST MEDICAL HISTORY: 1. GERD. 2. Hypertension. 3. Peptic ulcer disease. MEDICATIONS: Reviewed and updated in chart. ALLERGIES: PENICILLIN. SOCIAL HISTORY: Denies alcohol, tobacco, or IV drug abuse. FAMILY HISTORY: Negative for colon cancer, IBD, or liver disease. REVIEW OF SYSTEMS: GENERAL: Reports some weakness. HEENT: No visual complaints or tinnitus. PULMONARY: No shortness of breath. No cough. No chest pain. GASTROINTESTINAL: Reports nausea, vomiting and coffee emesis, now stable. All points of 13-point review of systems otherwise negative. PHYSICAL EXAMINATION: VITAL SIGNS: Temperature of 98.1, pulse 89, respirations 18, blood pressure 100/60. GENERAL: Fairly thin female, in no acute distress. HEENT: Pupils equal, round and reactive. PULMONARY: Clear to auscultation bilaterally. CARDIOVASCULAR: Regular rate and rhythm. Normal S1, S2. ABDOMEN: Positive bowel sounds, soft. SKIN: No obvious rashes. LABORATORY DATA: Pertinent for white count of 6.0, hemoglobin and hematocrit of 7.1 and 20.4, platelet count of 227. Chem-7, sodium of 141, potassium 2.5, chloride 100, CO2 of 25, BUN and creatinine of [address] scan abd/pelvis showed dilated gallbladder, but no other significant findings. ASSESSMENT: A 49-year-old female with a known history of peptic ulcer disease, now presents with nausea, vomiting and reported coffee-ground emesis. The patient's last EGD was in May, which showed a clean based ulcer. She denies any melena. Conservative management is noted below. PLAN: 1. Follow hematocrit and transfuse as needed. 2. PPI IV b.i.d. 3. We will start p.o. today with plans for probably EGD in a.m. 4. Followup and further recommendation based on results of the above. JOB# [id number] CAB/NTS MTDD
[2019-08-11] MEDS ORDERED: SODIUM CHLORIDE 0.9% 1000 ML 1,000 ML IV SCH (14:15)
[2019-08-11] MEDS ORDERED: MIDODRINE 5 MG TAB PO ONE (16:58)
[2019-08-11] MEDS: PANTOPRAZOLE 40 MG INJ IV SCH (21:21)
[2019-08-12 02:01] LABS: Creatinine,Urine 18.7 mg/dL (0.1-20.0)
[2019-08-12] MEDS ORDERED: WATER FOR IRRIG STERILE 250 ML BOTTLE IR ONE (07:58)
[2019-08-12] MEDS ORDERED: SODIUM CHLORIDE 0.9% 1000 ML 1,000 ML ONE (08:30)
[2019-08-12] MEDS ORDERED: propofoL 200 MG/20 ML VIAL IV ONE (08:35)
[2019-08-12] MEDS ORDERED: LIDOCAINE MPF (2%) 20 MG/1 ML VIAL 5 ML ONE (08:37)
--- NOTE | 2019-08-12 09:01 | Post Operative Note ---
Pre-op diagnosis: gi bleed Post-op diagnosis: same Findings: EGD: moderate esophagitis w/ long segment Huggins's (bx's) - hiatal hernia - gastritis (bx's) - 1 cm ulcer duodenal sweep w/o bleeding stigmata Procedure: EGD w/ bx's Anesthesia: MAC Surgeon: JERILYN SANDY Estimated blood loss: none Pathology: list Specimen disposition: to lab Condition: stable Disposition: floor
--- NOTE | 2019-08-12 09:01 | Anesthesia Consultation ---
Anesthesia Consult and Med Hx Date of service: 08/12/19 - Airway Anesthetic Teeth Evaluation: Poor (multiple missing, broken teeth) ROM Head & Neck: Adequate Mental/Hyoid Distance: Adequate Mallampati Class: Class II Intubation Access Assessment: Probably Good - Pre-Operative Health Status ASA Pre-Surgery Classification: ASA2 Proposed Anesthetic Plan: MAC - Cardiovascular System Hx Hypertension: Yes - Gastrointestinal Hx Ulcer: Yes - Hematic Hx Anemia: Yes - Additional Comments Anesthesia Medical History Comments: Head Lice
--- NOTE | 2019-08-12 09:02 | Anesthesia Day of Surgery ---
Anesthesia Day of Surgery - Day of Surgery Patient Examined: Yes Patient H&P Reviewed: Yes Patient is NPO: Yes
--- NOTE | 2019-08-12 10:22 | Operative Report ---
INDICATIONS: 1. Anemia. 2. Gastrointestinal bleed. MEDICATIONS: Propofol per MANNEQUIN [employer]ORING ARTIST. COMPLICATIONS: None. DESCRIPTION OF PROCEDURE: The patient brought to the procedure suite. The patient had the procedure discussed with her at length. All risks, complications, and benefits discussed, which the patient signed for the procedure to be performed. The patient was placed in left lateral decubitus position. Mouth block placed in the patient's oral cavity. After adequate sedation medication as above, endoscope placed in the mouth and brought to level of the second portion of duodenum. Retroflexion view was performed. The patient's vital signs remained stable throughout the procedure. FINDINGS: There was moderate esophagitis with scattered white base ulcers and signs of Huggins's esophagus noted 20-28 cm from the gums. No obvious stigmata of bleeding was noted. Biopsies were taken and sent for pathology. There was a medium to large hiatal hernia at GE junction. The esophagus otherwise appeared to be normal. There was a small amount of semisolid food material noted in the gastric body. There was mild antral gastritis noted. Biopsies were taken and sent to pathology. There was a 1 cm white based ulcer without bleeding stigmata noted in the duodenal sweep. There was erythema and inflammation surrounding this area, but again no stigmata of bleeding. The remaining duodenum otherwise appeared to be normal. Retroflexion view performed in the stomach showed no other pathology other than noted above. The patient tolerated the procedure well. No complications noted throughout the procedure. IMPRESSION: 1. A medium to large hiatal hernia. 2. Esophagitis with probable Huggins's without bleeding stigmata, the distal third of the esophagus. Biopsies performed. 3. Small amount of semisolid food material in the gastric body. 4. Gastritis, biopsies performed. 5. Ulcer duodenal sweep without bleeding stigmata. 6. Otherwise, normal EGD. RECOMMENDATIONS: 1. Follow up biopsy results. 2. If H. pylori positive, treat. 3. PPI IV b.i.d. 4. Advance diet. 5. If stable H and H, okay to discharge from GI standpoint. JOB# [id number] CAB/NTS
[2019-08-12] MEDS: PANTOPRAZOLE 40 MG INJ IV SCH ×2 (10:34→21:41)
[2019-08-12] MEDS: ACETAMINOPHEN 325 MG TAB PO PRN (10:34)
[2019-08-12 10:43] LABS: Hematocrit 27.9 % (30.3-42.9); Hemoglobin 9.4 gm/dl (10.1-14.3); Mean Corpuscular HGB Conc 34 % (30-34); Mean Corpuscular Volume 101 fl (79-97); Platelet Count 199 K/mm3 (140-440); Red Blood Count 2.77 M/mm3 (3.65-5.03)
[2019-08-12 10:45] LABS: Red Cell Distribution Width 30.4 % (13.2-15.2)
[2019-08-12 11:01] LABS: BUN/Creatinine Ratio 8; Blood Urea Nitrogen 3 mg/dL (7-17); Calcium 8.1 mg/dL (8.4-10.2); Hemolysis Index 8
[2019-08-12] MEDS ORDERED: POTASSIUM CHLORIDE ER 20 MEQ TAB PO ONE (11:30)
[2019-08-12] MEDS ORDERED: POTASSIUM CHLORIDE 10 MEQ 10 MEQ/100 ML BAG IV SCH (12:00)
--- NOTE | 2019-08-12 12:27 | Progress Note ---
Assessment and Plan Impression: * Hypokalemia --Urine K 5.4meq/L; UKCR 3.98 * Metaolic acidosis - resolved * Anemia --EGD (August 11): moderate esophagitis w/ long segment Huggins's (bx's); hiatal hernia; gastritis (bx's);1 cm ulcer duodenal sweep w/o bleeding stigmata Plan: * Patient does not appear to have renal K wasting * Continue to replete lytes prn - note order for KCl (ordered to receive total 80meq today) * Will start KCl 40meq po BID tomorrow * GI following - EGD findings noted * Continue IVF for hydration * Transfuse pRBC prn * AM labs ordered Subjective Date of service: 08/12/19 Interval history: Patient is s/p EGD today. Findings reviewed - moderate esophagitis w/ long segment Huggins's and 1 cm ulcer duodenal sweep w/o bleeding stigmata. Bx obtained. Objective - Exam Narrative Exam: Physical exam limited in an effort to conserve PPE - Vital Signs Vital signs: Vital Signs - 12hr 08/12/19 08/12/19 08/12/19 01:00 02:00 04:27 Temperature 98.6 F 98.0 F Pulse Rate 88 68 87 Respiratory 20 18 Rate Blood Pressure 87/47 Blood Pressure 141/68 [Left] O2 Sat by Pulse 95 97 Oximetry 08/12/19 08/12/19 08/12/19 05:28 08:25 08:52 Temperature 98.3 F 98.3 F 98.2 F Pulse Rate 89 85 Respiratory 18 18 16 Rate Blood Pressure 89/54 100/57 104/64 Blood Pressure [Left] O2 Sat by Pulse 100 100 Oximetry 08/12/19 08/12/19 08/12/19 08:53 09:10 09:25 Temperature Pulse Rate 86 80 Respiratory 18 20 15 Rate Blood Pressure 105/66 99/66 Blood Pressure [Left] O2 Sat by Pulse 100 100 Oximetry - General Appearance General appearance: frail EENT: ATNC Psychiatric: cooperative - Lab 08/12/19 09:59 08/12/19 09:59 Most recent lab results Calcium 8.1 mg/dL (8.4-10.2) L 08/12/19 09:59 Magnesium 2.60 mg/dL (1.7-2.3) H 08/10/19 05:34 Urine Creatinine 18.7 mg/dL (0.1-20.0) 08/11/19 Unknown Urine Sodium 12 mmol/L 08/11/19 Unknown Medications & Allergies - Medications Allergies/Adverse Reactions: Allergies Penicillins Allergy (Verified 08/10/19 05:10) Unknown Home Medications: Home Medications Medication Instructions Recorded Confirmed Last Taken Type No Known Home Medications [No 08/10/19 08/10/19 Unknown History Reported Home Medications] Active Medications: Generic Name Dose Route Start Last Admin Trade Name Freq PRN Reason Stop Dose Admin Acetaminophen 650 mg 08/10/19 08:14 08/12/19 10:34 Tylenol PO 650 mg Q4H PRN Administration Pain MILD(1-3)/Fever >100.5/COHN Bisacodyl 10 mg 08/10/19 08:14 Dulcolax DE QDAY PRN Constipation unrelieved by MOM Sodium Chloride 1,000 mls @ 50 mls/hr 08/11/19 14:15 Nacl 0.9% 1000 Ml IV DIRECT ARNOLDO Potassium Chloride 10 meq in 100 mls @ 100 mls/hr 08/12/19 12:00 Kcl 10meq/100ml IV 08/12/19 15:59 Q1H ARNOLDO Magnesium Hydroxide 30 ml 08/10/19 15:20 Milk Of Magnesia PO Q4H PRN Constipation Metoclopramide HCl 10 mg 08/10/19 08:14 08/11/19 09:05 Reglan IV 10 mg Q6H PRN Administration Nausea And Vomiting Naloxone HCl 0.1 mg 08/10/19 08:14 Naloxone IV Q2MIN PRN Res Rate </= 8 or 02 SAT < 92% Ondansetron HCl 4 mg 08/10/19 08:20 Zofran IV Q4H PRN Nausea And Vomiting Pantoprazole Sodium 40 mg 08/11/19 22:00 08/12/19 10:34 Protonix IV 40 mg BID ARNOLDO Administration Sodium Chloride 10 ml 08/10/19 10:00 08/12/19 10:34 Sodium Chloride Flush Syringe 10 Ml IV 10 ml BID ARNOLDO Administration Sodium Chloride 10 ml 08/10/19 08:14 08/10/19 19:25 Sodium Chloride Flush Syringe 10 Ml IV 10 ml PRN PRN Administration LINE FLUSH
--- NOTE | 2019-08-12 12:56 | Post Anesthesia Evaluation ---
- Post Anesthesia Evaluation Patient Participated: Yes Airway Patent: Yes Stable Respiratory Function: Yes Nausea/Vomiting: No Temp > 96.8F: Yes Pain Manageable: Yes Adequeate Hydration: Yes Anesthesia Complications: No
--- NOTE | 2019-08-12 15:09 | Progress Note ---
Assessment and Plan Assessment and plan: Patient is a 49-year-old female, history of erosive esophagitis, duodenal ulcer, anemia, intussusception, presents to ED with vomiting and abdominal pain. Initially she described it as food contents and today is bilious with noted coffee-ground emesis. Patient reports symptoms have been ongoing x1 month. States she has not had a bowel movement in 1 month despite being on stool softeners. Patient reports initially emesis consisted of stomach contents, states then became a greenish, bilious color, and this morning became brownish in color. Patient reports epigastric pain radiating to the back. Patient reports she has been to this hospital multiple times in the past and has been seen by GI, but has never followed up in the office as an outpatient. She denies tobacco use, or alcohol and illicit drug use. 08/10: Persistent hypokalemia. Acidosis is corrected. Will start bicarb drip. Will give additional potassium. Question underlining RTA. Discussed with nursing staff nephrology currently evaluating. GI called by nursing staff. We will plan to give a unit of packed red blood cell due to the dramatic drop in hemoglobin and hematocrit. 08/11: Patient status post EGD this morningE: moderate esophagitis w/ long segment Huggins's (bx's); hiatal hernia; gastritis (bx's);1 cm ulcer duodenal sweep w/o bleeding stigmata. We will continue PPI as recommended. KCl 40 mEq p.o. twice daily. Urine studies by nephrology does not appear to show any renal wasting. Good response following blood transfusion we will continue to monitor H&H anticipate discharge in a.m. Severe metabolic acidosis resolved- Severe persistent hypokalemia Persistent intractable nausea and vomiting secondary to duodenal ulcer Gastritis Severe Anemia Coffee-ground emesis evaluate for possible GI bleed Severe protein calorie malnutrition with cachexia BMI of 18 Hypermagnesemia Mildly elevated alk phos Tachycardia Plan Continue supportive care as outlined above and below Zofran every 4 hours as needed. And Reglan if no improvement with Zofran. Patient already received 2 L boluses of fluid on admission will reevaluate fluid status. We will put a nephrology consult Permethrin was ordered and patient was treated with same. Discontinue bicarb drip GI evaluation Monitor H&H Repeat labs in a.m. DVT and GI prophylaxis Anticipate discharge in a.m. Care discussed with product inspection coordinator and nursing staff History Interval history: Patient seen and examined this morning resting comfortably no new complaints. Discussed with nursing staff about low potassium. Just completed endoscopy this morning Hospitalist Physical - Physical exam Narrative exam: VITAL SIGNS: Reviewed. GENERAL: The patient appears normally developed, sitting up having breakfast when examined vital signs as documented. HEAD: No signs of head trauma. EYES: Pupils are equal. Extraocular motions intact. EARS: Hearing grossly intact. MOUTH: Oropharynx is normal. NECK: No adenopathy, no JVD. CHEST: Chest with clear breath sounds bilaterally. No wheezes, rales, or rhonchi. CARDIAC: tachycardia. S1 and S2, without murmurs, gallops, or rubs. VASCULAR: No Edema. Peripheral pulses normal and equal in all extremities. ABDOMEN: Soft, non tender [epigastric tenderness noted in the ED] and non diste nded. No rebound or guarding, and no masses palpated. Bowel Sounds normal. MUSCULOSKELETAL: Good range of motion of all major joints. Extremities without clubbing, cyanosis or edema. NEUROLOGIC EXAM: Alert and oriented x 3 No focal sensory or strength deficits. Speech normal. Follows commands. PSYCHIATRIC: Mood normal. SKIN: Multiple punctate skin lesion with dry skin. Detail exam as documented in skin assessment - Constitutional Vitals: Temp Pulse Resp BP Pulse Ox 98.2 F 80 15 99/66 100 08/12/19 08:52 08/12/19 09:25 08/12/19 09:25 08/12/19 09:25 08/12/19 09:25 Results - Labs CBC & Chem 7: 08/12/19 09:59 08/12/19 09:59 Labs: Laboratory Last Values WBC 4.3 K/mm3 (4.5-11.0) L 08/12/19 09:59 RBC 2.77 M/mm3 (3.65-5.03) L 08/12/19 09:59 Hgb 9.4 gm/dl (10.1-14.3) L 08/12/19 09:59 Hct 27.9 % (30.3-42.9) L D 08/12/19 09:59 MCV 101 fl (79-97) H 08/12/19 09:59 MCH 34 pg (28-32) H 08/12/19 09:59 MCHC 34 % (30-34) 08/12/19 09:59 RDW 30.4 % (13.2-15.2) H 08/12/19 09:59 Plt Count 199 K/mm3 (140-440) 08/12/19 09:59 Lymph % (Auto) Cv Tech 08/10/19 05:17 Nuckolls % (Auto) Cv Tech 08/10/19 05:17 Eos % (Auto) Cv Tech 08/10/19 05:17 Baso % (Auto) Cv Tech 08/10/19 05:17 Lymph # Cv Tech 08/10/19 05:17 [place]olls # Cv Tech 08/10/19 05:17 Eos # Cv Tech 08/10/19 05:17 Baso # Cv Tech 08/10/19 05:17 Add Manual Diff Complete 08/11/19 05:17 Total Counted 100 08/11/19 05:17 Seg Neutrophils % Cv Tech 08/10/19 05:17 Seg Neuts % (Manual) 65.0 % (40.0-70.0) 08/11/19 05:17 Band Neutrophils % 0 % 08/11/19 05:17 Lymphocytes % (Manual) 21.0 % (13.4-35.0) 08/11/19 05:17 Reactive Lymphs % (Man) 0 % 08/11/19 05:17 Monocytes % (Manual) 9.0 % (0.0-7.3) H 08/11/19 05:17 Eosinophils % (Manual) 5.0 % (0.0-4.3) H 08/11/19 05:17 Basophils % (Manual) 0 % (0.0-1.8) 08/11/19 05:17 Metamyelocytes % 0 % 08/11/19 05:17 Myelocytes % 0 % 08/11/19 05:17 Promyelocytes % 0 % 08/11/19 05:17 Blast Cells % 0 % 08/11/19 05:17 Nucleated RBC % Not Reportable 08/11/19 05:17 Seg Neutrophils # Cv Tech 08/10/19 05:17 Seg Neutrophils # Man 3.9 K/mm3 (1.8-7.7) 08/11/19 05:17 Band Neutrophils # 0.0 K/mm3 08/11/19 05:17 Lymphocytes # (Manual) 1.3 K/mm3 (1.2-5.4) 08/11/19 05:17 Abs React Lymphs (Man) 0.0 K/mm3 08/11/19 05:17 Monocytes # (Manual) 0.5 K/mm3 (0.0-0.8) 08/11/19 05:17 Eosinophils # (Manual) 0.3 K/mm3 (0.0-0.4) 08/11/19 05:17 Basophils # (Manual) 0.0 K/mm3 (0.0-0.1) 08/11/19 05:17 Metamyelocytes # 0.0 K/mm3 08/11/19 05:17 Myelocytes # 0.0 K/mm3 08/11/19 05:17 Promyelocytes # 0.0 K/mm3 08/11/19 05:17 Blast Cells # 0.0 K/mm3 08/11/19 05:17 WBC Morphology Not Reportable 08/11/19 05:17 Hypersegmented Neuts Not Reportable 08/11/19 05:17 Hyposegmented Neuts Not Reportable 08/11/19 05:17 Hypogranular Neuts Not Reportable 08/11/19 05:17 Smudge Cells Not Reportable 08/11/19 05:17 Toxic Granulation Not Reportable 08/11/19 05:17 Toxic Vacuolation Not Reportable 08/11/19 05:17 Dohle Bodies Not Reportable 08/11/19 05:17 Pelger-Huet Anomaly Not Reportable 08/11/19 05:17 Jhonny Rods Not Reportable 08/11/19 05:17 Platelet Estimate Consistent w auto 08/11/19 05:17 Clumped Platelets Not Reportable 08/11/19 05:17 Plt Clumps, EDTA Not Reportable 08/11/19 05:17 Large Platelets Not Reportable 08/11/19 05:17 Giant Platelets Not Reportable 08/11/19 05:17 Platelet Satelliting Not Reportable 08/11/19 05:17 Plt Morphology Comment Not Reportable 08/11/19 05:17 RBC Morphology Not Reportable 08/11/19 05:17 Dimorphic RBCs Not Reportable 08/11/19 05:17 Polychromasia Not Reportable 08/11/19 05:17 Hypochromasia Not Reportable 08/11/19 05:17 Poikilocytosis Not Reportable 08/11/19 05:17 Anisocytosis 3+ 08/11/19 05:17 Microcytosis Few 08/11/19 05:17 Macrocytosis Few 08/11/19 05:17 Spherocytes Not Reportable 08/11/19 05:17 Pappenheimer Bodies Not Reportable 08/11/19 05:17 Sickle Cells Not Reportable 08/11/19 05:17 Target Cells Few 08/11/19 05:17 Tear Drop Cells Few 08/11/19 05:17 Ovalocytes Few 08/11/19 05:17 Helmet Cells Not Reportable 08/11/19 05:17 [place] Bodies Not Reportable 08/11/19 05:17 [place] Rings Not Reportable 08/11/19 05:17 [place] Cells Not Reportable 08/11/19 05:17 Bite Cells Not Reportable 08/11/19 05:17 Crenated Cell Not Reportable 08/11/19 05:17 Elliptocytes Not Reportable 08/11/19 05:17 Acanthocytes (Spur) Not Reportable 08/11/19 05:17 Rouleaux Not Reportable 08/11/19 05:17 Hemoglobin C Crystals Not Reportable 08/11/19 05:17 Schistocytes Few 08/11/19 05:17 Malaria parasites Not Reportable 08/11/19 05:17 Jace Bodies Not Reportable 08/11/19 05:17 Hem Pathologist Commnt No 08/11/19 05:17 PT 14.2 Sec. (12.2-14.9) 08/10/19 05:34 INR 1.12 (0.87-1.13) 08/10/19 05:34 APTT 27.5 Sec. (24.2-36.6) 08/10/19 05:34 Sodium 146 mmol/L (137-145) H 08/12/19 09:59 Potassium 2.9 mmol/L (3.6-5.0) L* 08/12/19 09:59 Chloride 103.2 mmol/L (98-107) 08/12/19 09:59 Carbon Dioxide 25 mmol/L (22-30) 08/12/19 09:59 Anion Gap 21 mmol/L 08/12/19 09:59 BUN 3 mg/dL (7-17) L 08/12/19 09:59 Creatinine 0.4 mg/dL (0.7-1.2) L 08/12/19 09:59 Estimated GFR > 60 ml/min 08/12/19 09:59 BUN/Creatinine Ratio 8 % 08/12/19 09:59 Glucose 108 mg/dL (65-100) H 08/12/19 09:59 POC Glucose 145 (70-105) H 08/10/19 19:54 Calcium 8.1 mg/dL (8.4-10.2) L 08/12/19 09:59 Magnesium 2.60 mg/dL (1.7-2.3) H 08/10/19 05:34 Total Bilirubin 0.50 mg/dL (0.1-1.2) 08/11/19 05:17 Direct Bilirubin 0.3 mg/dL (0-0.2) H 08/10/19 05:34 Indirect Bilirubin 0.3 mg/dL 08/10/19 05:34 AST 23 units/L (5-40) 08/11/19 05:17 ALT 14 units/L (7-56) 08/11/19 05:17 Alkaline Phosphatase 91 units/L (35-129) 08/11/19 05:17 Total Protein 5.2 g/dL (6.3-8.2) L D 08/11/19 05:17 Albumin 2.4 g/dL (3.9-5) L 08/11/19 05:17 Albumin/Globulin Ratio 0.9 % 08/11/19 05:17 Lipase 146 units/L (13-60) H 08/10/19 05:34 Urine Creatinine 18.7 mg/dL (0.1-20.0) 08/11/19 Unknown Urine Sodium 12 mmol/L 08/11/19 Unknown Urine Potassium 5.40 mmol/L 08/11/19 Unknown Blood Type A POSITIVE 08/10/19 05:11 Antibody Screen Negative 08/10/19 05:11 Crossmatch See Detail 08/10/19 05:11 [place]/IV: Voiding Method Toilet IV Catheter Type [Right INT / Saline Lock Antecubital] IV Catheter Type [Left INT / Saline Lock Antecubital] Active Medications - Current Medications Current Medications: Generic Name Dose Route Start Last Admin Trade Name Freq PRN Reason Stop Dose Admin Acetaminophen 650 mg 08/10/19 08:14 08/12/19 10:34 Tylenol PO 650 mg Q4H PRN Administration Pain MILD(1-3)/Fever >100.5/COHN Bisacodyl 10 mg 08/10/19 08:14 Dulcolax [place] QDAY PRN Constipation unrelieved by MOM Sodium Chloride 1,000 mls @ 50 mls/hr 08/11/19 14:15 Nacl 0.9% 1000 Ml IV DIRECT ARNOLDO Potassium Chloride 10 meq in 100 mls @ 100 mls/hr 08/12/19 12:00 08/12/19 13:10 Kcl 10meq/100ml IV 08/12/19 15:59 100 mls/hr Q1H ARNOLDO Administration Magnesium Hydroxide 30 ml 08/10/19 15:20 Milk Of Magnesia PO Q4H PRN Constipation Metoclopramide HCl 10 mg 08/10/19 08:14 08/11/19 09:05 Reglan IV 10 mg Q6H PRN Administration Nausea And Vomiting Naloxone HCl 0.1 mg 08/10/19 08:14 Naloxone IV Q2MIN PRN Res Rate </= 8 or 02 SAT < 92% Ondansetron HCl 4 mg 08/10/19 08:20 Zofran IV Q4H PRN Nausea And Vomiting Pantoprazole Sodium 40 mg 08/11/19 22:00 08/12/19 10:34 Protonix IV 40 mg BID ARNOLDO Administration Potassium Chloride 40 meq 08/13/19 10:00 K-Dur PO BID ARNOLDO Sodium Chloride 10 ml 08/10/19 10:00 08/12/19 10:34 Sodium Chloride Flush Syringe 10 Ml IV 10 ml BID ARNOLDO Administration Sodium Chloride 10 ml 08/10/19 08:14 08/10/19 19:25 Sodium Chloride Flush Syringe 10 Ml IV 10 ml PRN PRN Administration LINE FLUSH
[2019-08-12] MEDS ORDERED: SODIUM CHLORIDE 0.9% IV ONE (16:00)
[2019-08-12] MEDS ORDERED: NACL 0.9%/KCL 40 MEQ 40 MEQ/1,000 ML BAG IV SCH (16:00)
[2019-08-12] MEDS ORDERED: POTASSIUM CHLORIDE IV ONE (16:00)
[2019-08-13 04:46] LABS: Hematocrit 25.3 % (30.3-42.9); Hemoglobin 8.6 gm/dl (10.1-14.3); Mean Corpuscular HGB Conc 34 % (30-34); Mean Corpuscular Volume 100 fl (79-97); Platelet Count 158 K/mm3 (140-440); Red Blood Count 2.54 M/mm3 (3.65-5.03)
[2019-08-13 04:53] LABS: Red Cell Distribution Width 29.7 % (13.2-15.2)
[2019-08-13 05:04] LABS: BUN/Creatinine Ratio 13; Blood Urea Nitrogen 4 mg/dL (7-17); Calcium 7.9 mg/dL (8.4-10.2); Hemolysis Index 2
--- NOTE | 2019-08-13 07:53 | Discharge Summary ---
Providers - Providers Date of Admission: 08/10/19 07:58 Attending physician: ERIC BELLO MD 08/10/19 07:54 Consult to Physician [CONS] Stat Comment: Consulting Provider: GARY ELDER Physician Instructions: Reason For Exam: gi bleed 08/10/19 15:23 Consult to Physician [CONS] Routine Comment: Consulting Provider: ALINE BARRON Physician Instructions: Reason For Exam: METABOLIC ACIDOSIS Primary care physician: [employer] Hospitalization Reason for admission: Chest pain Condition: Stable Hospital course: Patient is a 49-year-old female, history of erosive esophagitis, duodenal ulcer, anemia, intussusception, presents to ED with vomiting and abdominal pain. Initially she described it as food contents and today is bilious with noted coffee-ground emesis. Patient reports symptoms have been ongoing x1 month. States she has not had a bowel movement in 1 month despite being on stool softeners. Patient reports initially emesis consisted of stomach contents, states then became a greenish, bilious color, and this morning became brownish in color. Patient reports epigastric pain radiating to the back. Patient reports she has been to this hospital multiple times in the past and has been seen by GI, but has never followed up in the office as an outpatient. She denies tobacco use, or alcohol and illicit drug use. 08/10: Persistent hypokalemia. Acidosis is corrected. Will start bicarb drip. Will give additional potassium. Question underlining RTA. Discussed with nursing staff nephrology currently evaluating. GI called by nursing staff. We will plan to give a unit of packed red blood cell due to the dramatic drop in hemoglobin and hematocrit. 08/11: Patient status post EGD this morningE: moderate esophagitis w/ long segment Huggins's (bx's); hiatal hernia; gastritis (bx's);1 cm ulcer duodenal sweep w/o bleeding stigmata. We will continue PPI as recommended. KCl 40 mEq p.o. twice daily. Urine studies by nephrology does not appear to show any renal wasting. Good response following blood transfusion we will continue to monitor H&H anticipate discharge in a.m. 08/12: Patient clinically stable this morning electrolytes replaced potassium still mildly low but much improved I discussed the importance of continuing with a potassium recommendation and to have a repeat lab with the pricer and follow-up with them along with a GI doctor to evaluate results of the biopsies patient verbalized understanding. Extensive counseling was also provided to the patient on need to be compliant with medications and medical treatment and she verbalized understanding also Severe metabolic acidosis resolved- Severe persistent hypokalemia Persistent intractable nausea and vomiting secondary to duodenal ulcer Gastritis Severe Anemia Coffee-ground emesis evaluate for possible GI bleed Severe protein calorie malnutrition with cachexia BMI of 18 Hypermagnesemia Mildly elevated alk phos Tachycardia Disposition: DC-01 TO HOME OR SELFCARE Time spent for discharge: 35 mins Core Measure Documentation - Palliative Care Palliative Care/ Comfort Measures: Not Applicable - Core Measures Any of the following diagnoses?: none Exam - Physical Exam Narrative exam: VITAL SIGNS: Reviewed. GENERAL: The patient appears normally developed, sitting up having breakfast when examined vital signs as documented. HEAD: No signs of head trauma. EYES: Pupils are equal. Extraocular motions intact. EARS: Hearing grossly intact. MOUTH: Oropharynx is normal. NECK: No adenopathy, no JVD. CHEST: Chest with clear breath sounds bilaterally. No wheezes, rales, or rhonchi. CARDIAC: tachycardia. S1 and S2, without murmurs, gallops, or rubs. VASCULAR: No Edema. Peripheral pulses normal and equal in all extremities. ABDOMEN: Soft, non tender [epigastric tenderness noted in the ED] and non distended. No rebound or guarding, and no masses palpated. Bowel Sounds normal. MUSCULOSKELETAL: Good range of motion of all major joints. Extremities without clubbing, cyanosis or edema. NEUROLOGIC EXAM: Alert and oriented x 3 No focal sensory or strength deficits. Speech normal. Follows commands. PSYCHIATRIC: Mood normal. SKIN: Multiple punctate skin lesion with dry skin. Detail exam as documented in skin assessment - Constitutional Vitals: Temp Pulse Resp BP Pulse Ox 97.6 F 89 16 125/81 94 08/13/19 04:02 08/13/19 05:05 08/13/19 04:02 08/13/19 04:02 08/13/19 05:05 Plan Activity: advance as tolerated, fall precautions Diet: regular Special Instructions: record daily weights, record daily BP diary Additional Instructions: BMP IN ONE WEEK Follow up with: MARNIE CURRIE MD [Primary Care Provider] - 3-5 Days WOLFGANG LOZADA MD [Staff Physician] - 7 Days JERILYN SANDY MD [Staff Physician] - 7 Days Forms: Accompanied Note Prescriptions: Potassium Chloride [K-Dur] 40 meq PO BID #60 tablet Pantoprazole [Protonix TAB] 40 mg PO BID #60 tablet
[2019-08-13] MEDS ORDERED: POTASSIUM CHLORIDE ER 20 MEQ TAB PO SCH (10:00)
[2019-08-13] MEDS: PANTOPRAZOLE 40 MG INJ IV SCH (10:06)
--- NOTE | 2019-08-13 12:07 | Gastroenterology Progress Note ---
Assessment and Plan GI: pt w/ esophagitis, PUD on EGD - f/u bx's - PPI qd - ok to d/c Subjective Date of service: 08/13/19 Interval history: - reports no GI issues overnight Objective - Constitutional Vitals: Temp Pulse Resp BP Pulse Ox 98.6 F 87 19 114/68 99 08/13/19 08:40 08/13/19 10:00 08/13/19 10:00 08/13/19 08:40 08/13/19 08:40 General appearance: no acute distress - EENT Eyes: PERRL - Respiratory Respiratory: bilateral: CTA - Cardiovascular Rhythm: regular Heart Sounds: Present: S1 & S2 - Gastrointestinal General gastrointestinal: Present: soft, non-tender, non-distended - Labs CBC & Chem 7: 08/13/19 04:31 08/13/19 04:31 Labs: Laboratory Results - last 24 hr 08/13/19 08/13/19 04:31 04:31 WBC 3.7 L RBC 2.54 L Hgb 8.6 L Hct 25.3 L MCV 100 H MCH 34 H MCHC 34 RDW 29.7 H Plt Count 158 Sodium 143 Potassium 3.2 L Chloride 100.7 Carbon Dioxide 27 Anion Gap 19 BUN 4 L Creatinine 0.3 L Estimated GFR > 60 BUN/Creatinine Ratio 13 Glucose 107 H Calcium 7.9 L
[2019-08-13 13:01] VITALS: BP 127/80
== END 2019-08-13 13:11 | disposition home or self-care (01) | DRG 383 ==
LOC: EDSEX → ED 04:54 → 4A 07:58
PROVIDERS: ADMIT Internal Medicine; ATTEND Internal Medicine
PROC: 30233N1 Transfusion of Nonautologous Red Blood Cells into Peripheral Vein, Percutaneous Approach (ICD-10-PCS; principal; 2019-08-11)
PROC: 0DB38ZX Excision of Lower Esophagus, Via Natural or Artificial Opening Endoscopic, Diagnostic (ICD-10-PCS; 2019-08-12)
PROC: 0DB68ZX Excision of Stomach, Via Natural or Artificial Opening Endoscopic, Diagnostic (ICD-10-PCS; 2019-08-12)
DX: K26.3 Acute duodenal ulcer without hemorrhage or perforation (principal); E43 Unspecified severe protein-calorie malnutrition; E87.2 Acidosis; Z68.1 Body mass index [BMI] 19.9 or less, adult; K22.70 Barrett's esophagus without dysplasia; K20.9 Esophagitis, unspecified; K29.70 Gastritis, unspecified, without bleeding; B85.0 Pediculosis due to Pediculus humanus capitis; E87.6 Hypokalemia; D64.9 Anemia, unspecified; I10 Essential (primary) hypertension; K21.9 Gastro-esophageal reflux disease without esophagitis; E83.42 Hypomagnesemia; R00.0 Tachycardia, unspecified; K44.9 Diaphragmatic hernia without obstruction or gangrene; Z88.0 Allergy status to penicillin; Z87.11 Personal history of peptic ulcer disease
CPT/HCPCS: 36415; 74177; 80048; 80053; 80076; 82570; 82962; 83690; 83735; 84132; 84133; 84300; 85007; 85014; 85018; 85025; 85027; 85610; 85730; 86850; 86900; 86901; 86920; 88305; 88312; 88342; G0378; C9113; J2270; J2405; J2704; J2765; J3480; J7030; J7040; J7070; P9016

== ENCOUNTER 2020-03-24 20:37 | Observation (INO) | payer OTHER ==
[2020-03-24 22:00] LABS: Basophils % (Auto) 0.2 % (0.0-1.8); Hematocrit 39.2 % (30.3-42.9); Hemoglobin 13.3 gm/dl (10.1-14.3); Lymphocytes % (Auto) 11.6 % (13.4-35.0); Mean Corpuscular HGB Conc 34 % (30-34); Mean Corpuscular Volume 109 fl (79-97); Monocytes # (Auto) 0.7 K/mm3 (0.0-0.8); Monocytes % (Auto) 7.7 % (0.0-7.3); Platelet Count 528 K/mm3 (140-440); Red Blood Count 3.59 M/mm3 (3.65-5.03); Red Cell Distribution Width 19.1 % (13.2-15.2)
[2020-03-24 22:32] LABS: Albumin 4.3 g/dL (3.9-5)
[2020-03-25] MEDS ORDERED: LACTATED RINGERS 2,000 ML IV ONE (02:08)
[2020-03-25] MEDS ORDERED: ONDANSETRON 4 MG/2 ML INJ IV ONE (02:08)
[2020-03-25] MEDS ORDERED: fentaNYL 100 MCG/2 ML INJ IV ONE (02:08)
[2020-03-25] MEDS ORDERED: PANTOPRAZOLE 40 MG INJ IV ONE (02:08)
--- NOTE | 2020-03-25 02:09 | Emergency Department Report ---
ED General Adult HPI - General Chief complaint: GI Bleed Stated complaint: BLOODY STOOLS PUI?: No Time Seen by Provider: 03/25/20 01:31 Source: patient, RN notes reviewed, old records reviewed Mode of arrival: Ambulatory Limitations: No Limitations - History of Present Illness Initial comments: The patient was evaluated in the emergency department for symptoms described in the history of present illness. He/she was evaluated in the context of the global COVID-19 pandemic, which necessitated consideration that the patient mi ght be at risk for infection with the virus that causes COVID-19. Institutional protocols and algorithms that pertain to the evaluation of patients at risk for COVID-19 are in a state of rapid change based on information released by regulatory bodies including the CDC and federal and state organizations. These policies and algorithms were followed during the patient's care in the emergency department. Please note that these policies, procedures and recommendations changed on a rapid basis. During the entire history and physical examination, I am chaperoned by nurse Mellissa Hodge. This is a 50-year-old female. She is not known to myself previously. Has a history of endoscopically proven esophagitis with a long segment of Huggins's esophagus, hiatal hernia, gastritis. Patient was admitted to this hospital in July of this year for GI bleed, the aforementioned endoscopic findings, metabolic acidosis and hypokalemia. Patient has not been able to follow-up with outpatient primary care or gastroenterology, secondary to lack of insurance. She presents to the ER today with a complaint of initially painless nausea, vomiting, and bright red blood per rectum. She describes bright red blood per stool, and intermittent dark stool. She also describes simultaneous coffee- ground emesis. She has abdominal cramping, but no significant pain, and chest wall pain with vomiting. No fever, no loss of taste or smell, not on any blood thinning medications, not compliant with outpatient medications. -: Gradual, days(s) Location: chest, abdomen Radiation: abdomen Severity scale (0 -10): 7 Quality: aching Consistency: constant Improves with: rest Worsens with: other (Nausea, vomiting, palpitation) - Related Data Previous Rx's Medication Instructions Recorded Last Taken Type Pantoprazole [Protonix TAB] 40 mg PO BID #60 tablet 08/13/19 Unknown Rx Potassium Chloride [K-Dur] 40 meq PO BID #60 tablet 08/13/19 Unknown Rx Allergies Allergy/AdvReac Type Severity Reaction Status Date / Time Penicillins Allergy Unknown Verified 08/10/19 05:10 ED Review of Systems ROS: Stated complaint: BLOODY STOOLS Other details as noted in HPI Constitutional: malaise, weakness. denies: fever Eyes: denies: eye discharge ENT: denies: congestion Respiratory: denies: wheezing Cardiovascular: chest pain Gastrointestinal: abdominal pain, nausea, vomiting, hematemesis, hematochezia Genitourinary: denies: dysuria Musculoskeletal: denies: back pain Neurological: weakness Psychiatric: anxiety Hematological/Lymphatic: denies: easy bleeding ED Past Medical Hx - Past Medical History Previous Medical History?: Yes Hx Hypertension: Yes Additional medical history: PUD. GI Bleed. Anemia - Surgical History Past Surgical History?: No - Social History Smoking Status: Never Smoker Substance Use Type: None - Medications Home Medications: Home Medications Medication Instructions Recorded Confirmed Last Taken Type Pantoprazole [Protonix TAB] 40 mg PO BID #60 tablet 08/13/19 Unknown Rx Potassium Chloride [K-Dur] 40 meq PO BID #60 tablet 08/13/19 Unknown Rx ED Physical Exam - General Limitations: No Limitations General appearance: alert, anxious - Head Head exam: Present: atraumatic, normocephalic - Eye Eye exam: Present: normal appearance, EOMI. Absent: nystagmus - ENT ENT exam: Present: normal exam, mucous membranes dry, normal external ear exam - Neck Neck exam: Present: normal inspection, full ROM. Absent: tenderness, meningismus - Respiratory Respiratory exam: Present: normal lung sounds bilaterally. Absent: respiratory distress, wheezes, rales, rhonchi, stridor, decreased breath sounds - Cardiovascular Cardiovascular Exam: Present: normal rhythm, tachycardia, normal heart sounds. Absent: systolic murmur, diastolic murmur, rubs, gallop - GI/Abdominal GI/Abdominal exam: Present: soft, normal bowel sounds. Absent: distended, tenderness, guarding, rebound, rigid, pulsatile mass - Rectal Rectal exam: Present: normal inspection, normal rectal tone, heme (+) stool, bloody stool, other (Chaperoned by nurse Mellissa Hodge). Absent: fecal impaction, hemorrhoids, mass, tenderness - Extremities Exam Extremities exam: Present: normal inspection, full ROM, other (2+ pulses noted in the bilateral upper and lower extremities. There is no palpable cord. negative Homans sign. Muscular compartments are soft. The pelvis is stable.). Absent: pedal edema, joint swelling, calf tenderness - Back Exam Back exam: Present: normal inspection. Absent: tenderness, CVA tenderness (R), CVA tenderness (L), paraspinal tenderness, vertebral tenderness - Neurological Exam Neurological exam: Present: alert, other (No facial droop. Tongue midline. Extraocular movements intact bilaterally. Facial sensation intact to light touch in V1, V2, V3 distribution bilaterally. 5 and a 5 strength in 4 extremities. Sensation intact to light touch in 4 extremities.). Absent: motor sensory deficit - Psychiatric Psychiatric exam: Present: normal affect, normal mood, anxious - Skin Skin exam: Present: warm, dry, intact, normal color. Absent: rash ED Course Vital Signs 03/24/20 03/25/20 03/25/20 21:26 00:20 01:31 Temperature 99.4 F Pulse Rate 125 H 91 H Respiratory 24 Rate Blood Pressure 134/77 O2 Sat by Pulse 99 100 Oximetry 03/25/20 03/25/20 01:41 02:00 Temperature Pulse Rate 116 H 112 H Respiratory 22 19 Rate Blood Pressure 150/91 129/91 O2 Sat by Pulse 97 Oximetry - Reevaluation(s) Reevaluation #1: 03/25/20 03:57 CT scan abdomen pelvis suggest colitis. Antibiotics ordered. Tachycardia improving. - Consultations Consultation #1: 03/25/20 02:33 Discussed history, physical, pertinent laboratory studies, physical exam findings, and prior history/physical exam findings and endoscopic findings with gastroenterology on-call, Dr. Hernandez. Agrees with plan of care, will see the patient in consultation. ED Medical Decision Making - Lab Data Result diagrams: 03/24/20 21:43 03/24/20 21:43 Vital Signs 03/24/20 03/25/20 03/25/20 21:26 00:20 01:31 Temperature 99.4 F Pulse Rate 125 H 91 H Respiratory 24 Rate Blood Pressure 134/77 O2 Sat by Pulse 99 100 Oximetry 03/25/20 01:41 Temperature Pulse Rate 116 H Respiratory 22 Rate Blood Pressure 150/91 O2 Sat by Pulse Oximetry Lab Results 03/24/20 03/24/20 03/24/20 Range/Units 21:43 21:43 21:43 WBC 8.7 (4.5-11.0) K/mm3 RBC 3.59 L (3.65-5.03) M/mm3 Hgb 13.3 (10.1-14.3) gm/dl Hct 39.2 (30.3-42.9) % MCV 109 H (79-97) fl MCH 37 H (28-32) pg MCHC 34 (30-34) % RDW 19.1 H (13.2-15.2) % Plt Count 528 H (140-440) K/mm3 Lymph % (Auto) 11.6 L (13.4-35.0) % [place] % (Auto) 7.7 H (0.0-7.3) % Eos % (Auto) 0.0 (0.0-4.3) % Baso % (Auto) 0.2 (0.0-1.8) % Lymph # (Auto) 1.0 L (1.2-5.4) K/mm3 [place] # (Auto) 0.7 (0.0-0.8) K/mm3 Eos # (Auto) 0.0 (0.0-0.4) K/mm3 Baso # (Auto) 0.0 (0.0-0.1) K/mm3 Seg Neutrophils % 80.5 H (40.0-70.0) % Seg Neutrophils # 7.0 (1.8-7.7) K/mm3 Sodium 135 L (137-145) mmol/L Potassium 4.0 (3.6-5.0) mmol/L Chloride 98.7 (98-107) mmol/L Carbon Dioxide 8 L* (22-30) mmol/L Anion Gap 32 mmol/L BUN 8 (7-17) mg/dL Creatinine 1.0 (0.6-1.2) mg/dL Estimated GFR 58 ml/min BUN/Creatinine Ratio 8 % Glucose 117 H (65-100) mg/dL Calcium 10.0 (8.4-10.2) mg/dL Total Bilirubin 0.50 (0.1-1.2) mg/dL AST 32 (5-40) units/L ALT 16 (7-56) units/L Alkaline Phosphatase 131 H (35-129) units/L Total Protein 8.5 H (6.3-8.2) g/dL Albumin 4.3 (3.9-5) g/dL Albumin/Globulin Ratio 1.0 % Blood Type A POSITIVE Antibody Screen Negative - EKG Data -: EKG Interpreted by Md EKG shows normal: sinus rhythm Rate: tachycardia - EKG Data 03/25/20 02:34 Sinus rhythm, tachycardia, 125 bpm, normal axis, QTC is prolonged, left ventricular hypertrophy, motion artifact. Abnormal EKG. No STEMI. - Radiology Data Radiology results: pending, report reviewed, image reviewed CT ABDOMEN AND PELVIS WITH CONTRAST HISTORY: MAIN. Generalized abdominal pain with hematemesis and lower GI bleed for one day COMPARISON: CT abdomen/pelvis from 08/10/2019 TECHNIQUE: CT images of the abdomen and pelvis were obtained following administration of intravenous contrast. All CT scans at this location are performed using CT dose reduction for ALARA by means of automated exposure control. CONTRAST: 100 ml of intravenous contrast administered. FINDINGS: Lungs/bones: Lung bases are clear. No acute osseous abnormality. Mild degenerative changes in the spine and pelvis. Abdomen/pelvis: The gallbladder remains distended with no internal stone disease or wall thickening. There is mild hepatic steatosis but the liver is otherwise unremarkable. The spleen, pancreas, adrenals, and proximal GI tract appear unremarkable. There are small simple bilateral renal cysts. Urinary bladder and reproductive organs are unremarkable with no pelvic free fluid. There is mild circumferential wall thickening extending from the splenic flexure to the rectum. No bowel obstruction or evidence of perforation. Terminal ileum and appendix appear normal. No acute vascular abnormality identified and no significant atherosclerotic disease. IMPRESSION: 1. Mild distal colitis extending from the splenic flexure to the rectum. Signer Name: Phillip Gaming MD Signed: 03/25/2020 2:36 AM Workstation Name: [email or web address] [email or web address] 4 VIEW(S) INDICATION / CLINICAL INFORMATION: cp n/v abd pain. COMPARISON: CT abdomen/pelvis from 08/10/2019 FINDINGS: TUBES / LINES: None. BOWEL GAS PATTERN: No significant abnormality. FREE AIR / EXTRALUMINAL GAS: None seen. ADDITIONAL FINDINGS: Clear lungs with normal heart size. Left renal nephrolithiasis noted with 2 adjacent stones in the midpole region the largest of which measures roughly 7 mm. IMPRESSION: 1. Left-sided nephrolithiasis. Signer Name: Phillip Gaming MD Signed: 03/25/2020 2:12 AM Workstation Name: [id number] - Medical Decision Making Differential diagnosis, including but not limited to: Metabolic acidosis, dehy dration, CO2 losses secondary to nausea and vomiting, nausea and vomiting secondary to gastritis/Huggins's esophagitis, dehydration, upper GI bleed, angiodysplasia, lower GI bleed Assessment and plan: 50-year-old female, who is afebrile, with tachycardia, recurrent metabolic acidosis, soft benign abdomen, with a primary complaint of initially painless nausea and vomiting, coffee-ground emesis, and dark red/bright red blood per rectum, with subsequent development of abdominal cramping, and chest pressure. Suspect abdominal discomfort is likely secondary to nausea, vomiting, likely secondary to esophagitis/gastritis. Suspect that discomfort likely secondary to nausea vomiting, and the aforementioned. Hemoglobin, hematocrit improved when compared to prior values. CO2 and metabolic acidosis are likely secondary to nausea and vomiting. We have recommended admission to the medical service for IV fluids, supportive care. Patient is amenable to this plan of care. IV fluids, Protonix, pain medication have been ordered. Nausea medication is ordered. Gastroenterology, Dr. Hernandez, Has been consulted, and will follow along in consultation. Hospital physician, Dr. James Lenz, To admit patient to the medical service. Critical care attestation.: If time is entered above; I have spent that time in minutes in the direct care of this critically ill patient, excluding procedure time. ED Disposition Clinical Impression: Nausea & vomiting, GI bleed, Hypokalemia, Acute abdominal pain Disposition: OP ADMIT IP TO THIS HOSP Is pt being admited?: Yes Does the pt Need Aspirin: No Condition: Serious Referrals: PRIMARY CARE, [Primary Care Provider] - 3-5 Days Forms: Accompanied Note
--- NOTE | 2020-03-25 03:15 | History and Physical Report ---
History of Present Illness Date of examination: 03/25/20 Date of admission: 03/25/2020 Chief complaint: Nausea and vomiting Coffee-ground emesis Bright red blood per rectum History of present illness: 50-year-old female with known history of GERD, esophagitis with Huggins's esophagus, hiatal hernia and gastritis presenting to the emergency room today complaining of nausea vomiting and bright red blood per rectum. She has had intermittent bright red blood and dark stool over the past 24 hours. She has also had coffee-ground emesis with associated abdominal cramping. Patient was seen here in July 2019 with similar complaints during which she had endoscopy and was diagnosed at that time with Huggins's esophagus, she also had metabolic acidosis and hypokalemia during the admission. However, she has not followed up on outpatient basis with any landing signal officer probably secondary to these insurance issues. Upon arrival in the emergency room today patient was found to be tachycardic, her hemoglobin and hematocrit were stable, she was stool guaiac positive. Sales Special Agent Dr. Hernandez was consulted by the ER physician recommendation was to place patient on IV fluid and IV Protonix drip. Patient being admitted for GI bleed. Past History Past Medical History: GERD, hypertension, other (Peptic ulcer disease, Huggins's esophagus) Past Surgical History: Other (Endoscopy) Social history: no significant social history Family history: no significant family history Medications and Allergies Allergies Allergy/AdvReac Type Severity Reaction Status Date / Time Penicillins Allergy Unknown Verified 08/10/19 05:10 Home Medications Medication Instructions Recorded Confirmed Last Taken Type No Known Home Medications [No 03/25/20 03/25/20 Unknown History Reported Home Medications] Active Meds: Active Medications Lactated Ringer's (Lactated Ringers) 2,000 mls @ 999 mls/hr IV BOLUS ONE Stop: 03/25/20 04:08 Last Admin: 03/25/20 02:14 Dose: 999 mls/hr Documented by: Pantoprazole Sodium 80 mg/ (Sodium Chloride) 100 mls @ 10 mls/hr IV DIRECT ARNOLDO Review of Systems Constitutional: no fever, no chills Ears, nose, mouth and throat: no nasal congestion, no sore throat Cardiovascular: no chest pain, no palpitations Respiratory: no cough, no shortness of breath Gastrointestinal: abdominal pain, nausea, vomiting, coffee ground emesis, BRBPR, no diarrhea Genitourinary Female: no pelvic pain, no flank pain, no dysuria, no hematuria Rectal: bleeding Musculoskeletal: no neck pain, no low back pain Integumentary: no rash, no redness Neurological: no headaches, no confusion Psychiatric: no anxiety, no paranoia Exam - Constitutional Vitals: Temp Pulse Resp BP Pulse Ox 99.4 F 112 H 19 129/91 97 03/24/20 21:26 03/25/20 02:00 03/25/20 02:00 03/25/20 02:00 03/25/20 02:00 General appearance: Present: no acute distress, well-nourished - EENT Eyes: Present: PERRL, EOM intact. Absent: scleral icterus ENT: hearing intact, clear oral mucosa, dentition normal - Neck Neck: Present: supple, normal ROM - Respiratory Respiratory: bilateral: CTA - Cardiovascular Rhythm: regular Heart Sounds: Present: S1 & S2. Absent: gallop, systolic murmur, diastolic murmur, rub - Extremities Extremities: no ischemia, pulses intact, pulses symmetrical, No edema, normal temperature, normal color, Full ROM Peripheral Pulses: within normal limits - Abdominal General gastrointestinal: Present: soft, non-tender, non-distended, normal bowel sounds. Absent: mass - Integumentary Integumentary: Present: clear, warm, dry - Musculoskeletal Musculoskeletal: strength equal bilaterally - Psychiatric Psychiatric: appropriate mood/affect, intact judgment & insight, memory intact, cooperative - Neurologic Neurologic: CNII-XII intact, no focal deficits, moves all extremities Results - Labs CBC & Chem 7: 03/24/20 21:43 03/24/20 21:43 Labs: Abnormal lab results 03/24/20 03/24/20 Range/Units 21:43 21:43 RBC 3.59 L (3.65-5.03) M/mm3 MCV 109 H (79-97) fl MCH 37 H (28-32) pg RDW 19.1 H (13.2-15.2) % Plt Count 528 H (140-440) K/mm3 Lymph % (Auto) 11.6 L (13.4-35.0) % [place] % (Auto) 7.7 H (0.0-7.3) % Lymph # (Auto) 1.0 L (1.2-5.4) K/mm3 Seg Neutrophils % 80.5 H (40.0-70.0) % Sodium 135 L (137-145) mmol/L Carbon Dioxide 8 L* (22-30) mmol/L Glucose 117 H (65-100) mg/dL Alkaline Phosphatase 131 H (35-129) units/L Total Protein 8.5 H (6.3-8.2) g/dL Assessment and Plan - Patient Problems (1) GI bleed Current Visit: Yes Status: Acute Plan to address problem: Patient placed on IV fluid and Protonix drip. Sales Special Agent has been consulted for evaluation. (2) Nausea & vomiting Current Visit: Yes Status: Acute Plan to address problem: Patient placed on IV Zofran as needed. She is made n.p.o. at this time. (3) Metabolic acidosis Current Visit: No Status: Acute Plan to address problem: We will continue on IV fluid. Patient will also be placed on sodium bicarb. We will monitor chemistry. (4) DVT prophylaxis Current Visit: Yes Status: Acute Plan to address problem: Patient placed on sequential compression device. (5) Full code status Current Visit: Yes Status: Acute Plan to address problem: Patient is a full code.
--- NOTE | 2020-03-25 03:16 | XRay Report ---
ABDOMEN 4 VIEW(S) INDICATION / CLINICAL INFORMATION: cp n/v abd pain. COMPARISON: CT abdomen/pelvis from 08/10/2019 FINDINGS: TUBES / LINES: None. BOWEL GAS PATTERN: No significant abnormality. FREE AIR / EXTRALUMINAL GAS: None seen. ADDITIONAL FINDINGS: Clear lungs with normal heart size. Left renal nephrolithiasis noted with 2 mandi cent stones in the midpole region the largest of which measures roughly 7 mm. IMPRESSION: 1. Left-sided nephrolithiasis. Signer Name: Phililp Gaming MD Signed: 03/25/2020 3:12 AM Workstation Name: [id number]
[2020-03-25] MEDS ORDERED: ONDANSETRON 4 MG/2 ML INJ IV PRN (03:28)
[2020-03-25] MEDS ORDERED: ACETAMINOPHEN 325 MG TAB PO PRN (03:28)
[2020-03-25] MEDS ORDERED: SODIUM CHLORIDE 0.9% 1000 ML 1,000 ML IV SCH (03:30)
--- NOTE | 2020-03-25 03:40 | Cat Scan Report ---
CT ABDOMEN AND PELVIS WITH CONTRAST HISTORY: MAIN. Generalized abdominal pain with hematemesis and lower GI bleed for one day COMPARISON: CT abdomen/pelvis from 08/10/2019 TECHNIQUE: CT images of the abdomen and pelvis were obtained following administration of intravenous contrast. All CT scans at this location are performed using CT dose reduction for ALARA by means of automated exposure control. CONTRAST: 100 ml of intravenous contrast administered. FINDINGS: Lungs/bones: Lung bases are clear. No acute osseous abnormality. Mild degenerative changes in the sp ine and pelvis. Abdomen/pelvis: The gallbladder remains distended with no internal stone disease or wall thickening. There is mild hepatic steatosis but the liver is otherwise unremarkable. The spleen, pancreas, adren als, and proximal GI tract appear unremarkable. There are small simple bilateral renal cysts. Urinary bladder and reproductive organs are unremarkable with no pelvic free fluid. There is mild cir cumferential wall thickening extending from the splenic flexure to the rectum. No bowel obstruction o r evidence of perforation. Terminal ileum and appendix appear normal. No acute vascular abnormality i dentified and no significant atherosclerotic disease. IMPRESSION: 1. Mild distal colitis extending from the splenic flexure to the rectum. Signer Name: Phillip Gaming MD Signed: 03/25/2020 3:36 AM Workstation Name: [id number]
[2020-03-25] MEDS ORDERED: metroNIDAZOLE/NS 500 MG/100 ML 500 MG/100 ML BAG IV ONE (03:55)
[2020-03-25] MEDS ORDERED: levoFLOXacin 500 MG TAB PO ONE (03:55)
[2020-03-25] MEDS: PANTOPRAZOLE 80 MG in SODIUM CHLORIDE 0.9% 100 ML IV SCH ×2 (04:07→13:39)
[2020-03-25] MEDS ORDERED: SODIUM BICARB 8.4% 50 MEQ/50 ML SYRINGE IV NR (08:30)
[2020-03-25] MEDS ORDERED: SODIUM BICARBONATE 50 MEQ in SODIUM CHLORIDE 0.9% 1000 ML 1,000 ML IV SCH (09:00)
--- NOTE | 2020-03-25 10:41 | Gastroenterology Consultation ---
History of Present Illness - Reason for Consult Consult date: 03/25/20 Abdominal pain rectal bleeding Requesting physician: ANTHONY FINCH - History of Present Illness 50-year-old female with known history of GERD, severe esophagitis with Huggins's esophagus, hiatal hernia and gastritis and duodenal ulcer (all in 07/2019 see report copied below) presented to the emergency room with history of complaining nausea vomiting and bright red blood per rectum, also with coffee-ground emesis with associated abdominal pain that is cramping quality, diffuse, mod to sever e, worse with eating and better with nothing non radiating stable duration days, similar in quality to the pain that she had on prior admission Patient denies alcohol tobacco or NSAID use She reports not taking a PPI as she reports ran out of funds to buy them She reports she just wants her abdominal pain to feel better FOBT pos in ER, she was also with tachycardia at time of admission and acid/base abnormalities. patient remains tachy 07/2019 EGD: moderate esophagitis w/ long segment Huggins's (bx's) - hiatal hernia - gastritis (bx's) - 1 cm ulcer duodenal sweep w/o bleeding stigmata Obtained/updated/reviewed patient's current medications Past History Past Medical History: GERD, hypertension, other (Peptic ulcer disease, Huggins's esophagus) Past Surgical History: Other (Endoscopy) Social history: no significant social history Family history: no significant family history Medications and Allergies Allergies Allergy/AdvReac Type Severity Reaction Status Date / Time Penicillins Allergy Unknown Verified 08/10/19 05:10 Home Medications Medication Instructions Recorded Confirmed Last Taken Type No Known Home Medications [No 03/25/20 03/25/20 Unknown History Reported Home Medications] Active Meds: Active Medications Acetaminophen (Acetaminophen 325 Mg Tab) 650 mg PO Q4H PRN PRN Reason: Pain MILD(1-3)/Fever >100.5/COHN Last Admin: 03/25/20 09:20 Dose: 650 mg Documented by: Pantoprazole Sodium 80 mg/ (Sodium Chloride) 100 mls @ 10 mls/hr IV DIRECT ARNOLDO Last Admin: 03/25/20 04:07 Dose: 8 mg/hr, 10 mls/hr Documented by: Sodium Bicarbonate 50 meq/ (Sodium Chloride) 1,050 mls @ 100 mls/hr IV DIRECT ARNOLDO Last Admin: 12/25/20 09:21 Dose: 100 mls/hr Documented by: Ondansetron HCl (Ondansetron 4 Mg/2 Ml Inj) 4 mg IV Q8H PRN PRN Reason: Nausea And Vomiting Sodium Chloride (Sodium Chloride 0.9% 10 Ml Flush Syringe) 10 ml IV BID ARNOLDO Last Admin: 03/25/20 09:21 Dose: 10 ml Documented by: Sodium Chloride (Sodium Chloride 0.9% 10 Ml Flush Syringe) 10 ml IV PRN PRN PRN Reason: LINE FLUSH Review of Systems - Review of Systems All systems: negative (10 Systems reviewed and negative except as mentioned above in the history of present illness) Exam - Constitutional Vital Signs: Temp Pulse Resp BP Pulse Ox 98.7 F 107 H 24 136/77 100 03/25/20 05:00 03/25/20 05:01 03/25/20 05:01 03/25/20 05:01 03/25/20 05:01 General appearance: no acute distress - EENT Eyes: EOM intact - Neck Neck: supple - Respiratory Respiratory effort: normal - Cardiovascular Rhythm: other (On exam with me her heart rate is within normal limits) - Gastrointestinal General gastrointestinal: Present: soft, tender - Integumentary Integumentary: Present: warm - Neurologic Neurological: alert and oriented x3 - Psychiatric Psychiatric: appropriate mood/affect - Labs CBC & Chem 7: 03/24/20 21:43 03/24/20 21:43 Lab Results: Laboratory Results - last 24 hr 03/24/20 03/24/20 03/24/20 21:43 21:43 21:43 WBC 8.7 RBC 3.59 L Hgb 13.3 Hct 39.2 MCV 109 H MCH 37 H MCHC 34 RDW 19.1 H Plt Count 528 H Lymph % (Auto) 11.6 L [place] % (Auto) 7.7 H Eos % (Auto) 0.0 Baso % (Auto) 0.2 Lymph # (Auto) 1.0 L [place] # (Auto) 0.7 Eos # (Auto) 0.0 Baso # (Auto) 0.0 Seg Neutrophils % 80.5 H Seg Neutrophils # 7.0 Sodium 135 L Potassium 4.0 Chloride 98.7 Carbon Dioxide 8 L* Anion Gap 32 BUN 8 Creatinine 1.0 Estimated GFR 58 BUN/Creatinine Ratio 8 Glucose 117 H Calcium 10.0 Magnesium Total Bilirubin 0.50 AST 32 ALT 16 Alkaline Phosphatase 131 H Total Creatine Kinase Total Protein 8.5 H Albumin 4.3 Albumin/Globulin Ratio 1.0 Blood Type A POSITIVE Antibody Screen Negative 03/25/20 Unknown WBC RBC Hgb Hct MCV MCH MCHC RDW Plt Count Lymph % (Auto) [place] % (Auto) Eos % (Auto) Baso % (Auto) Lymph # (Auto) [place] # (Auto) Eos # (Auto) Baso # (Auto) Seg Neutrophils % Seg Neutrophils # Sodium Potassium Chloride Carbon Dioxide Anion Gap BUN Creatinine Estimated GFR BUN/Creatinine Ratio Glucose Calcium Magnesium 2.70 H Total Bilirubin AST ALT Alkaline Phosphatase Total Creatine Kinase 214 H Total Protein Albumin Albumin/Globulin Ratio Blood Type Antibody Screen Assessment and Plan I sent differential diagnosis for patient's symptoms is recurrent peptic ulcer disease, therefore continue PPI and I am adding on Carafate as well. Regarding the blood the patient has seen, she reports having a colonoscopy a few years ago that she thinks was normal though she is not sure, regardless her hemoglobin is much better currently but with no requirement for where she had the bleeding from the peptic ulcer. Therefore, continue supportive care with PPI and Carafate and starting diet and advance as tolerated. If patient's symptoms improve rapidly she may be discharged with outpatient follow-up with us, I encouraged her to fill out our paperwork for uninsured patients so she can get discounted medical care through us. If however she is not improving then will evaluate for EGD and colonoscopy on Saturday - Patient Problems (1) Acute abdominal pain Current Visit: Yes Status: Acute (2) GI bleed Current Visit: Yes Status: Acute (3) Nausea & vomiting Current Visit: Yes Status: Acute
--- NOTE | 2020-03-25 12:48 | Discharge Summary ---
Providers - Providers Date of Admission: 03/25/20 03:28 Date of discharge: 03/25/20 Attending physician: VICKI PEARCE 03/25/20 02:08 Consult to Physician [CONS] Stat Comment: Dr. Wilde spoke with Dr. Aparicio @ 0214 Consulting Provider: LUIZ ALEJO Physician Instructions: Reason For Exam: gi bleed Primary care physician: TALLOW REFINER Hospitalization Condition: Serious Hospital course: Discharge diagnosis: (1) Acute abdominal pain Current Visit: Yes Status: Acute Due to PUD, CT abdomen was negative (2) GI bleed Current Visit: Yes Status: Acute h/h stable, need outpt f/u (3) Nausea & vomiting Current Visit: Yes Status: Acute improved, tolerating diet Disposition: FL- TO HOME OR SELFCARE Time spent for discharge: 34 minutes Core Measure Documentation - Palliative Care Palliative Care/ Comfort Measures: Not Applicable - Core Measures Any of the following diagnoses?: none Exam - Constitutional Vitals: Temp Pulse Resp BP Pulse Ox 98.7 F 107 H 24 136/77 100 03/25/20 05:00 03/25/20 05:01 03/25/20 05:01 03/25/20 05:01 03/25/20 05:01 Plan Activity: advance as tolerated Weight Bearing Status: Weight Bear as Tolerated Diet: advance as tolerated Follow up with: MARNIE CURRIE MD [Primary Care Provider] - 3-5 Days CAROLA APARICIO MD [Staff Physician] - 7 Days Forms: Accompanied Note Prescriptions: Sucralfate [Carafate] 1 gm PO ACHS 30 Days Pantoprazole [Protonix] 40 mg PO BID #120 tablet
[2020-03-25 13:12] VITALS: BP 113/48
[2020-03-25] MEDS ORDERED: SUCRALFATE 1 GM/10 ML ORAL LIQD PO SCH (16:30)
== END 2020-03-25 18:15 | disposition home or self-care (01) ==
LOC: ED 20:37 → 3A 03-25 03:28 → 4A 03-25 04:42
PROVIDERS: ADMIT Internal Medicine Geriatric Medicine; ATTEND Internal Medicine
DX: K92.2 Gastrointestinal hemorrhage, unspecified (principal); R11.2 Nausea with vomiting, unspecified; E87.2 Acidosis; K21.9 Gastro-esophageal reflux disease without esophagitis; K22.70 Barrett's esophagus without dysplasia; D64.9 Anemia, unspecified
CPT/HCPCS: 36415; 74022; 74177; 80053; 82550; 83735; 85025; 86850; 86900; 86901; 93005; 96361; 96365; 96366; 96367; 96368; 96375; 96376; 99285; C9113; G0378; J2405; J3010; J7030; J7120; Q9967

== ENCOUNTER 2020-10-26 13:16 | Emergency (ER) | payer SELFPAY ==
[2020-10-26 14:28] LABS: Hematocrit 27.4 % (30.3-42.9); Hemoglobin 9.3 gm/dl (10.1-14.3); Mean Corpuscular HGB Conc 34 % (30-34); Mean Corpuscular Volume 96 fl (79-97); Platelet Count 145 K/mm3 (140-440); Red Blood Count 2.84 M/mm3 (3.65-5.03); Red Cell Distribution Width 14.6 % (13.2-15.2)
[2020-10-26 14:51] LABS: Alanine Aminotransferase 10 units/L (7-56); Albumin 2.4 g/dL (3.9-5); Blood Urea Nitrogen 6 mg/dL (7-17); Calcium 8.1 mg/dL (8.4-10.2); Hemolysis Index 4
[2020-10-26 14:59] LABS: BUN/Creatinine Ratio 12
[2020-10-26 16:27] LABS: Eosinophils # (Auto) 0.1 K/mm3 (0.0-0.4); Eosinophils % (Auto) 2.3 % (0.0-4.3); Lymphocytes % (Auto) 20.6 % (13.4-35.0); Monocytes # (Auto) 0.6 K/mm3 (0.0-0.8); Monocytes % (Auto) 12.1 % (0.0-7.3)
[2020-10-26 16:28] LABS: Basophils % (Auto) 0.6 % (0.0-1.8)
--- NOTE | 2020-10-26 18:50 | Event Note ---
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 No known sick contacts. No alcohol use. No known history of HIV or hepatitis. Tachycardic in triage. General: Awake, appropriately interactive, no acute distress. Neck: Supple. Full range of motion intact. Cardiovascular: Normal peripheral perfusion. Pulmonary: No respiratory distress. Patient is speaking normally without use of accessory muscles. Abdomen: Diffuse upper abdominal tenderness without guarding or rebound. Multiple surgical scars. Skin: Jaundice and (+) scleral icterus, patient reports these findings are not consistent with her baseline. Neurological: No facial asymmetry. Speech is clear. Follows commands. Patient is alert and oriented. Musculoskeletal: Moves all four extremities spontaneously with normal range of motion. Psych: Cooperative. Appropriate mood and affect. I have greeted and performed a focused rapid initial assessment of this patient. A comprehensive ED assessment and evaluation of the patient, analysis of all test results, and completion of the medical decision-making process will be conducted by additional ED providers. This initial assessment/diagnostic ord ers/clinical plan/treatment(s) is/are subject to change based on patients health status, clinical progression and re-assessment. Further treatment and workup at subsequent clinical provider's discretion. Patient/guardian urged not to elope from the ED as their condition may be serious if not clinically assessed and managed.
[2020-10-26 20:04] LABS: INR 1.43 (0.87-1.13)
[2020-10-26 20:05] LABS: Partial Thromboplastin Time 35.9 Sec. (24.2-36.6)
[2020-10-26 20:52] LABS: Hepatitis B Surface Antigen Non-Reactive (Negative); Hepatitis C Virus Antibody Non-Reactive (NonReactive)
[2020-10-27] MEDS ORDERED: HYDROmorphone 1 MG/1 ML INJ IV ONE (02:56)
[2020-10-27] MEDS ORDERED: ONDANSETRON 4 MG/2 ML INJ IV ONE (02:56)
--- NOTE | 2020-10-27 02:56 | Emergency Department Report ---
ED Abdominal Pain HPI - General Chief Complaint: Abdominal Pain Stated Complaint: LOOSE STOOL/SWOLLEN STOMACH/PAIN/LIVER FAILURE PUI?: No Time Seen by Provider: 10/27/20 02:52 Source: patient Mode of arrival: Wheelchair Limitations: No Limitations - History of Present Illness Initial Comments: Patient is a 50-year-old female who presents emergency room with complaints of abdominal pain. Patient states her abdominal pain started 7 days ago. Patient states the abdominal pain is worsened. Patient states is in the entire abdomen. Patient states her abdominal area swelling. Patient states she has liver failure ascites frequently. Patient denies fever and chills. Patient denies nausea and vomiting. Patient denies blood in her stool. Patient also complains of diarrhea. Patient denies recent travel. Patient denies recent international travel. Patient denies exposure to the novel coronavirus. Patient denies sick contacts. Patient denies fever and chills. Patient denies cough. Patient denies diarrhea. Patient denies coming in contact with anybody with symptoms of the novel coronavirus. MD Complaint: abdominal pain -: Sudden Location: diffuse Radiation: none Migration to: no migration Severity: severe Severity scale (0 -10): 10 Quality: stabbing Consistency: constant Improves With: rest Worsens With: movement Associated Symptoms: diarrhea. denies: nausea, vomiting, fever, chills, constipation, dysuria, hematemesis, hematochezia, melena, hematuria, anorexia, syncope - Related Data Previous Rx's Medication Instructions Recorded Last Taken Type Pantoprazole [Protonix] 40 mg PO BID #120 tablet 03/25/20 Unknown Rx Sucralfate [Carafate] 1 gm PO ACHS 30 Days 03/25/20 Unknown Rx Ciprofloxacin HCl 500 mg PO Q12HR 10 Days #20 tablet 10/27/20 Unknown Rx Ondansetron [Zofran Odt] 4 mg PO Q6HR PRN #14 tab.rapdis 10/27/20 Unknown Rx metroNIDAZOLE [Flagyl] 500 mg PO Q12HR 10 Days #20 tab 10/27/20 Unknown Rx Allergies Allergy/AdvReac Type Severity Reaction Status Date / Time Penicillins Allergy Unknown Verified 10/26/20 13:31 ED Review of Systems ROS: Stated complaint: LOOSE STOOL/SWOLLEN STOMACH/PAIN/LIVER FAILURE Other details as noted in HPI Constitutional: denies: chills, fever Eyes: denies: eye pain, eye discharge, vision change ENT: denies: ear pain, throat pain Respiratory: denies: cough, shortness of breath, wheezing Cardiovascular: denies: chest pain, palpitations Endocrine: no symptoms reported Gastrointestinal: as per HPI, abdominal pain, diarrhea. denies: nausea Genitourinary: denies: urgency, dysuria, discharge Musculoskeletal: denies: back pain, joint swelling, arthralgia Skin: denies: rash, lesions Neurological: denies: headache, weakness, paresthesias Psychiatric: denies: anxiety, depression Hematological/Lymphatic: denies: easy bleeding, easy bruising ED Past Medical Hx - Past Medical History Previous Medical History?: Yes Hx Hypertension: Yes Hx Heart Attack/AMI: No Hx Congestive Heart Failure: No Hx Diabetes: No Hx Liver Disease: Yes Hx Sickle Cell Disease: No Hx Asthma: No Hx COPD: No Additional medical history: PUD. GI Bleed. Anemia - Surgical History Past Surgical History?: Yes Additional Surgical History: ABD PAIN X 3 - Family History Family history: no significant - Social History Smoking Status: Never Smoker Substance Use Type: None - Medications Home Medications: Home Medications Medication Instructions Recorded Confirmed Last Taken Type Pantoprazole [Protonix] 40 mg PO BID #120 tablet 03/25/20 Unknown Rx Sucralfate [Carafate] 1 gm PO ACHS 30 Days 03/25/20 Unknown Rx Ciprofloxacin HCl 500 mg PO Q12HR 10 Days #20 tablet 10/27/20 Unknown Rx Ondansetron [Zofran Odt] 4 mg PO Q6HR PRN #14 tab.rapdis 10/27/20 Unknown Rx metroNIDAZOLE [Flagyl] 500 mg PO Q12HR 10 Days #20 tab 10/27/20 Unknown Rx ED Physical Exam - General Limitations: No Limitations General appearance: alert, in no apparent distress - Head Head exam: Present: atraumatic, normocephalic - Eye Eye exam: Present: normal appearance - ENT ENT exam: Present: mucous membranes moist - Neck Neck exam: Present: normal inspection - Respiratory Respiratory exam: Present: normal lung sounds bilaterally. Absent: respiratory distress - Cardiovascular Cardiovascular Exam: Present: regular rate, normal rhythm. Absent: systolic murmur, diastolic murmur, rubs, gallop - GI/Abdominal GI/Abdominal exam: Present: soft, distended, tenderness, normal bowel sounds - Extremities Exam Extremities exam: Present: normal inspection - Back Exam Back exam: Present: normal inspection - Neurological Exam Neurological exam: Present: alert, oriented X3 - Psychiatric Psychiatric exam: Present: normal affect, normal mood - Skin Skin exam: Present: warm, dry, intact, normal color. Absent: rash ED Course Vital Signs 10/26/20 13:32 Temperature 99.4 F Pulse Rate 106 H Respiratory 18 Rate Blood Pressure 118/67 O2 Sat by Pulse 98 Oximetry - Reevaluation(s) Reevaluation #1: I discussed all results and clinical findings with patient. I discussed plan of care with patient. Patient agrees with plan of care. Patient is stable for discharge. Patient will be discharged home. Patient given discharge instructions. Patient voiced understanding of discharge instructions. 10/27/20 05:50 ED Medical Decision Making - Lab Data Result diagrams: 10/26/20 13:40 10/26/20 13:40 - Radiology Data Radiology results: report reviewed CT ABDOMEN AND PELVIS WITH CONTRAST INDICATION / CLINICAL INFORMATION: abd pain/distension; hx liver failure. TECHNIQUE: Axial CT images were obtained through the abdomen and pelvis after 100 cc Omnipaque [address] scans at this location are performed using CT dose reduction for ALARA by means of automated exposure control. COMPARISON: CT abdomen and pelvis with contrast from 10/06/2020. FINDINGS: LOWER CHEST: Stable appearing gastric pull-through. Trace pleural effusions are again seen with similar dependent bilateral atelectasis. No other significant abnormality. LIVER: No significant abnormality. GALLBLADDER: Similarly distended without visualization of stones or other acute abnormalities. BILE DUCTS: No significant abnormality. PANCREAS: No significant abnormality. SPLEEN: Similarly mildly enlarged without other significant abnormalities. ADRENALS: No significant abnormality. RIGHT KIDNEY / URETER: Unchanged simple right lower renal pole cyst. No other significant abnormality. LEFT KIDNEY / URETER: Multiple nonobstructive left renal stones are unchanged. No other significant abnormality. STOMACH / SMALL BOWEL: There is similar generalized small bowel thickening with areas of mild dilatation. No other significant abnormalities. COLON: Previously seen colonic thickening from the ascending colon through the proximal third of the descending colon has improved. No other significant abnormalities. APPENDIX: No significant abnormality. PERITONEUM: Similar moderate amount of ascites. No free air. No fluid collection. There is similar mesenteric congestion/edema. LYMPH NODES: No significant adenopathy. AORTA / ARTERIES: No significant abnormality. IVC / VEINS: No significant abnormality. URINARY BLADDER: No significant abnormality. REPRODUCTIVE ORGANS: No significant abnormality. ADDITIONAL FINDINGS: None. SKELETAL SYSTEM: No significant abnormality. IMPRESSION: 1. No new acute abnormality of the abdomen or pelvis. 2. Similar small bowel thickening/mild dilatation, likely representing enteritis. 3. Improvement of the previously seen colitis. 4. Additional findings as above. - Medical Decision Making Patient is a 50-year-old female with a history of chronic liver disease that presents emergency with complaints of abdominal distention, abdominal pain, nausea, vomiting, diarrhea. Patient had labs done which were essentially unrem arkable except for finding consistent with liver disease. Patient had a CT scan of the abdomen done with IV contrast and it showed gastroenteritis. Patient had stable chronic conditions as well on the CT scan. Patient will be discharged home with Zofran. Patient will also be discharged home with a prescription for Cipro Flagyl since the diarrhea and this has been going on for a week. Patient does not require further emergency medical services. Patient does not require inpatient services. Patient is stable for discharge. Patient discharged home. - Differential Diagnosis Gastroenteritis, abdominal pain, diarrhea, nausea, vomiting, Critical care attestation.: If time is entered above; I have spent that time in minutes in the direct care of this critically ill patient, excluding procedure time. ED Disposition Clinical Impression: Gastroenteritis Nausea & vomiting Qualifiers: Vomiting type: unspecified Vomiting Intractability: non-intractable Qualified Code(s): R11.2 - Nausea with vomiting, unspecified Diarrhea Qualifiers: Diarrhea type: unspecified type Qualified Code(s): R19.7 - Diarrhea, unspecified Abdominal pain Qualifiers: Abdominal location: generalized Qualified Code(s): R10.84 - Generalized abdominal pain Disposition: TO HOME OR SELFCARE Is pt being admited?: No Does the pt Need Aspirin: No Condition: Stable Instructions: Abdominal Pain (ED), Food Choices to Help Relieve Diarrhea, Adult, Nausea and Vomiting, Adult, [id number], Viral Gastroenteritis, Adult, [id number], Abdominal Pain, Adult Additional Instructions: Patient to follow-up with primary care in 2 to 3 days. Patient to follow-up with gastroenterology in 2 to 3 days. Patient to rest. Patient to increase water. Patient to eat a brat diet. Patient to avoid fatty foods and alcohol. Patient to take ibuprofen as needed for pain. Patient to take meds as directed. Patient to return to the ER if condition worsens, changes or new symptoms arise. Prescriptions: Ciprofloxacin HCl 500 mg PO Q12HR 10 Days #20 tablet metroNIDAZOLE [Flagyl] 500 mg PO Q12HR 10 Days #20 tab Ondansetron [Zofran Odt] 4 mg PO Q6HR PRN #14 tab.rapdis PRN Reason: Nausea And Vomiting Referrals: PRIMARY CARE, [Primary Care Provider] - 2-3 Days RAJENDRA MA MD [Staff Physician] - 2-3 Days Time of Disposition: 06:05
--- NOTE | 2020-10-27 04:38 | Cat Scan Report ---
CT ABDOMEN AND PELVIS WITH CONTRAST INDICATION / CLINICAL INFORMATION: abd pain/distension; hx liver failure. TECHNIQUE: Axial CT images were obtained through the abdomen and pelvis after 100 cc Omnipaque [address] scans at this location are performed using CT dose reduction for ALARA by means of automated exposure control. COMPARISON: CT abdomen and pelvis with contrast from 10/06/2020. FINDINGS: LOWER CHEST: Stable appearing gastric pull-through. Trace pleural effusions are again seen with simil ar dependent bilateral atelectasis. No other significant abnormality. LIVER: No significant abnormality. GALLBLADDER: Similarly distended without visualization of stones or other acute abnormalities. BILE DUCTS: No significant abnormality. PANCREAS: No significant abnormality. SPLEEN: Similarly mildly enlarged without other significant abnormalities. ADRENALS: No significant abnormality. RIGHT KIDNEY / URETER: Unchanged simple right lower renal pole cyst. No other significant abnormality . LEFT KIDNEY / URETER: Multiple nonobstructive left renal stones are unchanged. No other significant a bnormality. STOMACH / SMALL BOWEL: There is similar generalized small bowel thickening with areas of mild dilatat ion. No other significant abnormalities. COLON: Previously seen colonic thickening from the ascending colon through the proximal third of the descending colon has improved. No other significant abnormalities. APPENDIX: No significant abnormality. PERITONEUM: Similar moderate amount of ascites. No free air. No fluid collection. There is similar me senteric congestion/edema. LYMPH NODES: No significant adenopathy. AORTA / ARTERIES: No significant abnormality. IVC / VEINS: No significant abnormality. URINARY BLADDER: No significant abnormality. REPRODUCTIVE ORGANS: No significant abnormality. ADDITIONAL FINDINGS: None. SKELETAL SYSTEM: No significant abnormality. IMPRESSION: 1. No new acute abnormality of the abdomen or pelvis. 2. Similar small bowel thickening/mild dilatation, likely representing enteritis. 3. Improvement of the previously seen colitis. 4. Additional findings as above. Signer Name: Vasiliy Saenz MD Signed: 10/27/2020 4:34 AM Workstation Name: [id number]
[2020-10-27 06:47] VITALS: BP 137/68
== END 2020-10-27 06:48 | disposition home or self-care (01) ==
LOC: ED 13:16
DX: K52.9 Noninfective gastroenteritis and colitis, unspecified (principal); I10 Essential (primary) hypertension; Z87.11 Personal history of peptic ulcer disease
CPT/HCPCS: 36415; 74177; 80053; 80074; 82140; 83690; 83735; 85007; 85025; 85610; 85730; 87806; 96374; 96375; 99284; J1170; J2405; Q9967; 80320; G0480

== ENCOUNTER 2020-11-23 12:55 | Emergency (ER) | payer SELFPAY ==
--- NOTE | 2020-11-23 14:30 | Event Note ---
ED Screening Note ED Screening Note: reports she has hx of liver failure due to tylenol use RUQ pain that began a week ago reports she has right rib pain and is worse with taking a deep breath has not seen GI nausea, one episode of vomiting no diarrhea no hematochezia, no melena, no hematemesis This initial assessment/diagnostic orders/clinical plan/treatment(s) is/are subject to change based on patients health status, clinical progression and re- assessment by fellow clinical providers in the ED. Further treatment and workup at subsequent clinical providers discretion. Patient/guardian urged not to elope from the ED as their condition may be serious if not clinically assessed and managed. Initial orders include: labs, urine, US, EKG, CXR
--- NOTE | 2020-11-23 15:13 | XRay Report ---
XR chest routine 2V INDICATION / CLINICAL INFORMATION: pleuritic pain, right rib pain. COMPARISON: 07/11/2020. CT from 10/27/2020 FINDINGS: SUPPORT DEVICES: None. HEART /PULMONARY VASCULATURE: No significant abnormality. LUNGS / PLEURA: Trace bibasilar pleural fluid, greater on the right. Bibasilar volume loss. Is unchan ged from CT from 10/27/2020. No new or increasing airspace consolidation. No pneumothorax. ADDITIONAL FINDINGS: Postsurgical changes of gastric pull-through. IMPRESSION: Trace right greater than left bibasilar pleural fluid and adjacent volume loss/scarring. Findings are unchanged from CT from 10/27/2020. Signer Name: Navdeep Howard MD Signed: 11/23/2020 3:09 PM Workstation Name: [id number]
[2020-11-23 15:23] LABS: Basophils % (Auto) 0.4 % (0.0-1.8); Eosinophils # (Auto) 0.2 K/mm3 (0.0-0.4); Eosinophils % (Auto) 1.6 % (0.0-4.3); Hematocrit 27.9 % (30.3-42.9); Hemoglobin 9.2 gm/dl (10.1-14.3); Lymphocytes # (Auto) 1.2 K/mm3 (1.2-5.4); Lymphocytes % (Auto) 11.5 % (13.4-35.0); Mean Corpuscular HGB Conc 33 % (30-34); Mean Corpuscular Volume 91 fl (79-97); Monocytes # (Auto) 0.9 K/mm3 (0.0-0.8); Monocytes % (Auto) 8.9 % (0.0-7.3); Platelet Count 202 K/mm3 (140-440); Red Blood Count 3.07 M/mm3 (3.65-5.03); Red Cell Distribution Width 14.8 % (13.2-15.2)
[2020-11-23 15:36] LABS: Alanine Aminotransferase 11 units/L (7-56); Albumin 2.7 g/dL (3.9-5); BUN/Creatinine Ratio 21; Blood Urea Nitrogen 17 mg/dL (7-17); Calcium 8.1 mg/dL (8.4-10.2); Hemolysis Index 2
--- NOTE | 2020-11-23 16:04 | Ultrasound Report ---
ULTRASOUND ABDOMEN, LIMITED (RIGHT UPPER QUADRANT) INDICATION: RUQ pain. COMPARISON: None available. FINDINGS: Pancreas: Visualized portion shows no significant abnormality. Liver: Increased echogenicity with mild heterogeneity. Gallbladder: Contracted with of the gallbladder wall. No visualized stones. Bile ducts: Normal. Common Bile Duct measures 2. mm. Free fluid: None. Additional Findings: None. IMPRESSION: 1. Liver is heterogeneous compatible with underlying hepatocellular disease. 2. Contracted gallbladder without stones. Signer Name: Santi Ernandez MD Signed: 11/23/2020 3:57 PM Workstation Name: [id number]
--- NOTE | 2020-11-23 16:38 | Emergency Department Report ---
ED General Adult HPI - General Chief complaint: Abdominal Pain Stated complaint: ABD PAIN/RIB PAIN/LIVER FAILURE HERE 2 DAYS AGO Time Seen by Provider: 11/23/20 14:30 Source: patient Mode of arrival: Wheelchair Limitations: No Limitations - History of Present Illness Initial comments: 50-year-old female patient presents with complaints of right upper abdominal pain x1 week. 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 She denies any hemoptysis, leg pain/swelling, history of DVT/PE/cancer, hormone use, recent long travel/surgeries, nausea/vomiting/diarrhea, constipation, or u rinary symptoms. No loss of taste or smell or fever/chills/sweats per patient. Pain worsens with deep inhalation. Patient states she is not currently seeing GI due to lack of insurance - Related Data Previous Rx's Medication Instructions Recorded Last Taken Type Pantoprazole [Protonix] 40 mg PO BID #120 tablet 03/25/20 Unknown Rx Sucralfate [Carafate] 1 gm PO ACHS 30 Days 03/25/20 Unknown Rx Ciprofloxacin HCl 500 mg PO Q12HR 10 Days #20 tablet 10/27/20 Unknown Rx Ondansetron [Zofran Odt] 4 mg PO Q6HR PRN #14 tab.rapdis 10/27/20 Unknown Rx metroNIDAZOLE [Flagyl] 500 mg PO Q12HR 10 Days #20 tab 10/27/20 Unknown Rx Cefpodoxime Proxetil 200 mg PO Q12H 7 Days #14 tablet 11/23/20 Unknown Rx Doxycycline Monohydrate 100 mg PO BID 10 Days #20 capsule 11/23/20 Unknown Rx traMADoL [Ultram 50 MG tab] 50 mg PO Q6HR PRN #10 tablet 11/23/20 Unknown Rx Allergies Allergy/AdvReac Type Severity Reaction Status Date / Time Penicillins Allergy Unknown Verified 11/23/20 13:33 ED Review of Systems ROS: Stated complaint: ABD PAIN/RIB PAIN/LIVER FAILURE HERE 2 DAYS AGO Other details as noted in HPI Constitutional: denies: chills, fever, malaise Respiratory: cough, shortness of breath Cardiovascular: chest pain Gastrointestinal: abdominal pain. denies: nausea, vomiting Genitourinary: denies: urgency, dysuria, frequency, hematuria, discharge Musculoskeletal: denies: back pain Neurological: denies: numbness, paresthesias ED Past Medical Hx - Past Medical History Hx Hypertension: Yes Hx Heart Attack/AMI: No Hx Congestive Heart Failure: No Hx Diabetes: No Hx Liver Disease: Yes Hx Sickle Cell Disease: No Hx Asthma: No Hx COPD: No Additional medical history: PUD. GI Bleed/ LIVER FAILURE. Anemia - Surgical History Additional Surgical History: ABD PAIN X 3 - Social History Smoking Status: Never Smoker Substance Use Type: None - Medications Home Medications: Home Medications Medication Instructions Recorded Confirmed Last Taken Type Pantoprazole [Protonix] 40 mg PO BID #120 tablet 03/25/20 Unknown Rx Sucralfate [Carafate] 1 gm PO ACHS 30 Days 03/25/20 Unknown Rx Ciprofloxacin HCl 500 mg PO Q12HR 10 Days #20 tablet 10/27/20 Unknown Rx Ondansetron [Zofran Odt] 4 mg PO Q6HR PRN #14 tab.rapdis 10/27/20 Unknown Rx metroNIDAZOLE [Flagyl] 500 mg PO Q12HR 10 Days #20 tab 10/27/20 Unknown Rx Cefpodoxime Proxetil 200 mg PO Q12H 7 Days #14 tablet 11/23/20 Unknown Rx Doxycycline Monohydrate 100 mg PO BID 10 Days #20 capsule 11/23/20 Unknown Rx traMADoL [Ultram 50 MG tab] 50 mg PO Q6HR PRN #10 tablet 11/23/20 Unknown Rx ED Physical Exam - General Limitations: No Limitations General appearance: alert, in no apparent distress - Head Head exam: Present: atraumatic, normocephalic - Eye Eye exam: Present: normal appearance. Absent: scleral icterus - ENT ENT exam: Present: normal exam - Respiratory Respiratory exam: Present: normal lung sounds bilaterally, chest wall tenderness (Right lower rib). Absent: respiratory distress - Cardiovascular Cardiovascular Exam: Present: regular rate, normal rhythm. Absent: systolic murmur, diastolic murmur, rubs, gallop - GI/Abdominal GI/Abdominal exam: Present: soft, tenderness (Right upper quadrant), normal bowel sounds. Absent: distended, guarding, rebound, rigid, other (No ascites noted) - Extremities Exam Extremities exam: Present: full ROM. Absent: calf tenderness (No swelling or tenderness to palpation noted to legs or arm) - Back Exam Back exam: Present: normal inspection. Absent: CVA tenderness (R) - Neurological Exam Neurological exam: Present: alert, oriented X3, normal gait - Psychiatric Psychiatric exam: Present: normal affect, normal mood - Skin Skin exam: Present: warm, dry, intact, normal color. Absent: rash ED Course Vital Signs 11/23/20 11/23/20 13:36 19:51 Temperature 98.6 F 97.8 F Pulse Rate 103 H 99 H Respiratory 18 20 Rate Blood Pressure 142/80 147/77 O2 Sat by Pulse 98 100 Oximetry ED Medical Decision Making - Lab Data Result diagrams: 11/23/20 14:54 11/23/20 14:54 Lab Results 11/23/20 11/23/20 11/23/20 Range/Units 14:54 14:54 17:01 WBC 10.1 (4.5-11.0) K/mm3 RBC 3.07 L (3.65-5.03) M/mm3 Hgb 9.2 L (10.1-14.3) gm/dl Hct 27.9 L (30.3-42.9) % MCV 91 (79-97) fl MCH 30 (28-32) pg MCHC 33 (30-34) % RDW 14.8 (13.2-15.2) % Plt Count 202 (140-440) K/mm3 Lymph % (Auto) 11.5 L (13.4-35.0) % [place] % (Auto) 8.9 H (0.0-7.3) % Eos % (Auto) 1.6 (0.0-4.3) % Baso % (Auto) 0.4 (0.0-1.8) % Lymph # (Auto) 1.2 (1.2-5.4) K/mm3 [place] # (Auto) 0.9 H (0.0-0.8) K/mm3 Eos # (Auto) 0.2 (0.0-0.4) K/mm3 Baso # (Auto) 0.0 (0.0-0.1) K/mm3 Seg Neutrophils % 77.6 H (40.0-70.0) % Seg Neutrophils # 7.8 H (1.8-7.7) K/mm3 D-Dimer 1661.34 H (0-234) ng/mlDDU Sodium 142 (137-145) mmol/L Potassium 3.3 L (3.6-5.0) mmol/L Chloride 108.5 H (98-107) mmol/L Carbon Dioxide 20 L (22-30) mmol/L Anion Gap 17 mmol/L BUN 17 (7-17) mg/dL Creatinine 0.8 (0.6-1.2) mg/dL Estimated GFR > 60 ml/min BUN/Creatinine Ratio 21 % Glucose 79 (65-100) mg/dL Calcium 8.1 L (8.4-10.2) mg/dL Total Bilirubin 1.40 H (0.1-1.2) mg/dL AST 25 (5-40) units/L ALT 11 (7-56) units/L Alkaline Phosphatase 172 H (35-129) units/L Troponin T < 0.010 (0.00-0.029) ng/mL Total Protein 6.8 (6.3-8.2) g/dL Albumin 2.7 L (3.9-5) g/dL Albumin/Globulin Ratio 0.7 % Lipase 23 (13-60) units/L - Radiology Data Radiology results: report reviewed XR chest routine 2V INDICATION / CLINICAL INFORMATION: pleuritic pain, right rib pain. COMPARISON: 07/11/2020. CT from 10/27/2020 FINDINGS: SUPPORT DEVICES: None. HEART /PULMONARY VASCULATURE: No significant abnormality. LUNGS / PLEURA: Trace bibasilar pleural fluid, greater on the right. Bibasilar volume loss. Is unchanged from CT from 10/27/2020. No new or increasing airspace consolidation. No pneumothorax. ADDITIONAL FINDINGS: Postsurgical changes of gastric pull-through. IMPRESSION: Trace right greater than left bibasilar pleural fluid and adjacent volume loss/scarring. Findings are unchanged from CT from 10/27/2020. ULTRASOUND ABDOMEN, LIMITED (RIGHT UPPER QUADRANT) INDICATION: RUQ pain. COMPARISON: None available. FINDINGS: Pancreas: Visualized portion shows no significant abnormality. Liver: Increased echogenicity with mild heterogeneity. Gallbladder: Contracted with of the gallbladder wall. No visualized stones. Bile ducts: Normal. Common Bile Duct measures 2. mm. Free fluid: None. Additional Findings: None. IMPRESSION: 1. Liver is heterogeneous compatible with underlying hepatocellular disease. 2. Contracted gallbladder without stones. CTA CHEST WITH CONTRAST INDICATION / CLINICAL INFORMATION: pain, SOB, worse on right, [id number] 100ML. TECHNIQUE: Axial CT images were obtained through the chest after injection of 100 mL's of Omnipaque 300 IV contrast. 3 plane MIP and/or 3D reconstructions were produced. All CT sca ns at this location are performed using CT dose reduction for ALARA by means of automated exposure control. COMPARISON: None available. FINDINGS: PULMONARY ARTERIES: No pulmonary emboli. THORACIC AORTA: No significant abnormality. HEART: No significant abnormality. CORONARY ARTERY CALCIFICATION: None. MEDIASTINUM / DAYA: No significant abnormality. PLEURA: There is a trace right pleural effusion. No pneumothorax. LUNGS: There is a right lower lobe consolidation. There is a 7 mm solid pulmonary nodule within the right lower lobe (series 3 image 214) ADDITIONAL FINDINGS: Patient is status post gastric pull-through UPPER ABDOMEN: There is mild perihepatic ascites. SKELETAL STRUCTURES: No significant osseous abnormality. IMPRESSION: 1. No CT evidence for pulmonary embolism. 2. Consolidation within the right lower lobe concerning for pneumonia. 3. Patient is status post gastric pull-through. 4. Mild perihepatic ascites. - Medical Decision Making 50-year-old female patient presents with complaints of right upper abdominal pain x1 week. 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 She denies any hemoptysis, leg pain/swelling, history of DVT/PE/cancer, hormone use, recent long travel/surgeries, nausea/vomiting/diarrhea, constipation, or urinary symptoms. No loss of taste or smell or fever/chills/sweats per patient. Pain worsens with deep inhalation. Patient states she is not currently seeing GI due to lack of insurance Cardiac work-up is negative for any acute abnormalities. Chest x-ray is negative. Heart score = 3. PERC score = 2. Dimer elevated. CTA chest performed and is negative for PE, however shows right lower lobe pneumonia. Denies any hospital stays in the last months. Will treat for community-acquired pneumonia. Recommend patient also receive outpatient COVID-19 testing. She is well-appearing and stable for discharge home. Patient to follow-up with primary care doctor in 2 to 3 days. Discussed diagnosis, treatment plan, and signs and symptoms that should prompt immediate return to the emergency department in detail patient verbalized understanding. Patient is ambulatory at this time and well-appearing and her vitals are within normal limits. Critical care attestation.: If time is entered above; I have spent that time in minutes in the direct care of this critically ill patient, excluding procedure time. ED Disposition Clinical Impression: Community acquired pneumonia Qualifiers: Laterality: right Lung location: lower lobe of lung Qualified Code(s): J18.9 - Pneumonia, unspecified organism Disposition: HOME / SELF CARE / HOMELESS Is pt being admited?: No Condition: Stable Instructions: Community-Acquired Pneumonia, Adult, Prevent the Spread of COVID- 19 if You Are Sick - CDC, Bacterial Pneumonia (ED), Abdominal Pain (ED) Prescriptions: Cefpodoxime Proxetil 200 mg PO Q12H 7 Days #14 tablet Doxycycline Monohydrate 100 mg PO BID 10 Days #20 capsule traMADoL [Ultram 50 MG tab] 50 mg PO Q6HR PRN #10 tablet PRN Reason: Pain Referrals: [facility] [Provider Group] - 2-3 Days [facility],MD [Primary Care Provider] - 2-3 Days [facility] [Provider Group] - 3-5 Days (liver disease) Heart Score - HEART Score History: Slightly suspicious EKG: Normal Age: 45-65 Risk factors: > 3 risk factors or hx of atherosclerotic disease Troponin: < normal limit HEART Score: 3 - EKG Read Time Time EKG Completed: 14:00 EKG Read Time: 14:05 - Critical Actions Critical Actions: 0-3 pts:0.9-1.7%risk of adverse cardiac event.Candidate for discharge
[2020-11-23] MEDS ORDERED: KETOROLAC 30 MG/1 ML INJ IV ONE (16:55)
[2020-11-23] MEDS ORDERED: POTASSIUM CHLORIDE ER 20 MEQ TAB PO ONE (16:58)
--- NOTE | 2020-11-23 18:53 | Cat Scan Report ---
CTA CHEST WITH CONTRAST INDICATION / CLINICAL INFORMATION: pain, SOB, worse on right, [id number] 100ML. TECHNIQUE: Axial CT images were obtained through the chest after injection of 100 mL's of Omnipaque 3 00 IV contrast. 3 plane MIP and/or 3D reconstructions were produced. All CT scans at this location ar e performed using CT dose reduction for ALARA by means of automated exposure control. COMPARISON: None available. FINDINGS: PULMONARY ARTERIES: No pulmonary emboli. THORACIC AORTA: No significant abnormality. HEART: No significant abnormality. CORONARY ARTERY CALCIFICATION: None. MEDIASTINUM / DAYA: No significant abnormality. PLEURA: There is a trace right pleural effusion. No pneumothorax. LUNGS: There is a right lower lobe consolidation. There is a 7 mm solid pulmonary nodule within the r ight lower lobe (series 3 image 214) ADDITIONAL FINDINGS: Patient is status post gastric pull-through UPPER ABDOMEN: There is mild perihepatic ascites. SKELETAL STRUCTURES: No significant osseous abnormality. IMPRESSION: 1. No CT evidence for pulmonary embolism. 2. Consolidation within the right lower lobe concerning for pneumonia. 3. Patient is status post gastric pull-through. 4. Mild perihepatic ascites. Signer Name: Arnel Mirza DO Signed: 11/23/2020 6:49 PM Workstation Name: [id number]
[2020-11-23 19:54] VITALS: BP 147/77
[2020-11-23] MEDS ORDERED: traMADol 50 MG TAB PO ONE (20:00)
--- NOTE | 2020-11-24 11:12 | Electrocardiograph Report ---
[facility] Test Date: 2020-11-23 Test Time: 14:45:43 Pat Name: OSCAR TREVINO Department: Room: Gender: F Registered Nurse Cardiac: RASHEED MATOSB: 1970 Requested By: YANA LOVETT Order Number: [id number] Reading MD: Darion Cameron Measurements Intervals [place] Rate: 91 P: 40 PA: 123 QRS: 56 QRSD: 77 T: 53 QT: 399 QTc: 493 Interpretive Statements Sinus rhythm No previous ECG available for comparison Electronically Signed On 11-24-2020 11:12:22 EDT by Darion Cameron
== END 2020-11-23 21:15 | disposition home or self-care (01) ==
LOC: ED 12:55
DX: J18.8 Other pneumonia, unspecified organism (principal); I10 Essential (primary) hypertension; K76.9 Liver disease, unspecified; D64.9 Anemia, unspecified; K92.2 Gastrointestinal hemorrhage, unspecified; K72.90 Hepatic failure, unspecified without coma; Z98.890 Other specified postprocedural states; Z88.0 Allergy status to penicillin
CPT/HCPCS: 36415; 71046; 71275; 76705; 80053; 83690; 84484; 85025; 85379; 93005; 96374; 99284; J1885; Q9967